=== PATIENT | female | born 1960 | race Caucasian/White ===

== ENCOUNTER → 2016-12-19 | Outpatient (CLI) | payer MEDICARE, OTHER ==
--- NOTE | 2016-12-20 11:51 | MM ---
Reason for exam: screening (asymptomatic). Last mammogram was performed 1 year and 1 month ago. History: Patient is postmenopausal and is nulliparous. Family history of breast cancer in aunt. Physical Findings: A clinical breast exam by your physician is recommended on an annual basis and results should be correlated with mammographic findings. MG Screening Mammo w CAD Bilateral CC and MLO view(s) were taken. Prior study comparison: November 23, 2015, bilateral MG screening mammo w CAD. June 25, 2014, bilateral MG screening mammo w CAD. The breast tissue is extremely dense which could obscure a lesion on mammography. There is no discrete abnormality. No significant changes when compared with prior studies. ASSESSMENT: Negative, BI-RAD 1 RECOMMENDATION: Routine screening mammogram of both breasts in 1 year.
== END | disposition home or self-care (01) ==
LOC: RADMAMWWP 12:57
PROVIDERS: ATTEND Obstetrics & Gynecology
DX: Z12.31 Encounter for screening mammogram for malignant neoplasm of breast (principal)

== ENCOUNTER → 2018-12-17 | Outpatient (CLI) | payer MEDICARE, OTHER ==
--- NOTE | 2018-12-18 09:06 | MM ---
Reason for exam: screening (asymptomatic). Last mammogram was performed 2 years ago. History: Patient is postmenopausal and is nulliparous. Family history of breast cancer in aunt. Physical Findings: A clinical breast exam by your physician is recommended on an annual basis and results should be correlated with mammographic findings. MG Screening Mammo w CAD Bilateral CC, MLO, and XCCL view(s) were taken. Prior study comparison: December 19, 2016, bilateral MG screening mammo w CAD. November 23, 2015, bilateral MG screening mammo w CAD. The breast tissue is heterogeneously dense. This may lower the sensitivity of mammography. Finding: There are diffuse/scattered calcifications in both breasts. No significant changes in finding since December 19, 2016 and November 23, 2015. ASSESSMENT: Benign, BI-RAD 2 RECOMMENDATION: Routine screening mammogram of both breasts in 1 year.
== END | disposition home or self-care (01) ==
LOC: RADMAMWWP 11:42
PROVIDERS: ATTEND General Practice
DX: Z12.31 Encounter for screening mammogram for malignant neoplasm of breast (principal)
CPT/HCPCS: 77067

== ENCOUNTER 2020-07-16 06:27 | Day surgery (SDC) | payer MEDICARE, OTHER ==
[2020-07-14 12:22] VITALS: BMI 21.7
[~2020-07-16 06:27] MED LIST: LACTATED RINGERS 1,000 ML IV SCH; LIDOCAINE 1% (10MG/ML) FOR IV START INTRADERMA PRN
--- NOTE | 2020-07-16 07:39 | P.GSHP ---
History of Present Illness H&P Date: 07/16/20 CHIEF COMPLAINT: Colon screen HISTORY OF PRESENT ILLNESS: The patient is a 60-year-old female who presents for colon screen. Lower endoscopy was offered for further evaluation and management. PAST MEDICAL HISTORY: Please see list. PAST SURGICAL HISTORY: Please see list. MEDICATIONS: Please see list. ALLERGIES: Please see list. SOCIAL HISTORY: No illicit drug use FAMILY HISTORY: No reports of Crohn disease or ulcerative colitis. REVIEW OF ORGAN SYSTEMS: CONSTITUTIONAL: No reports of fevers or chills. PHYSICAL EXAM: VITAL SIGNS: Stable GENERAL: Well-developed pleasant in no acute distress. HEENT: No scleral icterus. Extraocular movements grossly intact. Moist buccal mucosa. NECK: Supple without lymphadenopathy. CHEST: Unlabored respirations. Equal bilateral excursions. CARDIOVASCULAR: Regular rate and rhythm. Distal 2+ pulses. ABDOMEN: Soft, nontender, nondistended. MUSCULOSKELETAL: No clubbing, cyanosis, or edema. ASSESSMENT: 1. Colon screen. PLAN: 1. Recommend proceeding with a lower endoscopy Past Medical History Past Medical History: Cancer, GERD/Reflux, Hyperlipidemia Additional Past Medical History / Comment(s): low blood pressure, choking episode few yrs ago, constipation, basal cell cancer History of Any Multi-Drug Resistant Organisms: None Reported Past Surgical History: Orthopedic Surgery Additional Past Surgical History / Comment(s): surgery for fx rt leg with plates and pins- no other hx at assisted living home Past Anesthesia/Blood Transfusion Reactions: No Reported Reaction Smoking Status: Never smoker - Past Family History Brother(s) Family Medical History: Deep Vein Thrombosis (DVT) Medications and Allergies Home Medications Medication Instructions Recorded Confirmed Type Cholecalciferol [Vitamin D3] 2,000 unit PO DAILY 01/30/16 07/14/20 History Docusate [Colace] 100 mg PO 199901/30/16 07/14/20 History [place]be Carbonate [Nambe 450 mg PO BID 01/30/16 07/14/20 History Carbonate ER] Midodrine [ProAmatine] 5 mg PO 0800,1600 01/30/16 07/14/20 History carBAMazepine [TEGretol] 400 mg PO 0700 01/30/16 07/14/20 History risperiDONE [risperiDONE ODT] 4 mg PO BID 01/30/16 07/14/20 History Ascorbic Acid [Vitamin C] 1,000 mg PO QAM 07/14/20 07/14/20 History Atorvastatin [Lipitor] 20 mg PO 199907/14/20 07/14/20 History Benztropine Mesylate [Cogentin] 2 mg PO BID 07/14/20 07/14/20 History Deutetrabenazine [Austedo] 6 mg PO BID 07/14/20 07/14/20 History Deutetrabenazine [Austedo] 9 mg PO BID 07/14/20 07/14/20 History Lactulose 10 gm PO DIRECTED PRN 07/14/20 07/14/20 History Linaclotide [Linzess] 145 mcg PO 199907/14/20 07/14/20 History Multivit-Min/FA/Lycopen/Lutein 1 each PO QA 07/14/20 07/14/20 History [Centrum Silver Tablet] OLANZapine [ZyPREXA] 20 mg PO 199907/14/20 07/14/20 History OLANZapine [ZyPREXA] 20 mg PO 199907/14/20 07/14/20 History Omeprazole [PriLOSEC] 20 mg PO QA 07/14/20 07/14/20 History carBAMazepine [TEGretol] 600 mg PO 199907/14/20 07/14/20 History Allergies Allergy/AdvReac Type Severity Reaction Status Date / Time divalproex sodium Allergy Unknown Verified 07/16/20 07:12 [facility] Penicillins Allergy Unknown Verified 07/16/20 07:12 Surgical - Exam Vital Signs Temp Pulse Resp BP Pulse Ox 96.9 F L 68 14 108/60 99 07/16/20 07:14 07/16/20 07:14 07/16/20 07:14 07/16/20 07:14 07/16/20 07:14
[2020-07-16] MEDS ORDERED: PROPOFOL 10 MG/ML 20 ML VIAL IV ONE (07:59)
--- NOTE | 2020-07-16 08:25 | P.PCN ---
Date of Procedure: 07/16/20 Description of Procedure: PREOPERATIVE DIAGNOSIS: Colonoscopy screening, initial Cognitive delay POSTOPERATIVE DIAGNOSIS: Colonoscopy screening, initial Cognitive delay Poor prep with solid stool OPERATION: Colonoscopy to the hepatic flexure. SURGEON: Gifty Gordon MD. ANESTHESIA: MAC. INDICATIONS: The patient is a 60-year-old female who presents for her first colonoscopy screening. Benefits and risks were described and informed consent was obtained. DESCRIPTION OF PROCEDURE: The patient had undergone Gatorade, MiraLAX and Dulcolax prep. She had been brought into the operating room and laid in the left lateral decubitus position. After adequate intravenous sedation, the rectum was examined with 2% lidocaine jelly. No external hemorrhoids were encountered. The rectal tone was loose. No lesions were palpated in the rectal vault. An Olympus colonoscope was advanced along the rectum to a very tortuous sigmoid colon to the hepatic flexure. Extremely poor prep with opaque stool and semisolid stool was found in the sigmoid colon descending colon preventing any further advancement the scope in any visualization of the mucosa. Due to the extremely poor prep, procedure was terminated at the hepatic flexure. Procedure otherwise nondiagnostic. The colon was desufflated. The patient had tolerated the procedure well. Withdrawal time was over 6 minutes. FINDINGS: [place] preparation quality scale 5 (1-5) Tortuous sigmoid colon No external prolapsed hemorrhoids. Scope advanced to the hepatic flexure No arteriovenous malformations. Nondiagnostic procedure for polyps or colitis RECOMMENDATIONS: 1. Recommend tailored colonoscopy prep and bowel cleanse for at least 1 week prior to colonoscopy 2. Repeat colonoscopy in one year, 2020 Plan - Discharge Summary New Discharge Prescriptions: Continue Docusate [Colace] 100 mg PO 2000 Cholecalciferol [Vitamin D3 (25 Mcg = 1000 Iu)] 2,000 unit PO DAILY carBAMazepine [TEGretol] 400 mg PO 0700 [place] Carbonate [[place] Carbonate ER] 450 mg PO BID risperiDONE [risperiDONE ODT] 4 mg PO BID Midodrine [ProAmatine] 5 mg PO 0800,1600 Deutetrabenazine [Austedo] 6 mg PO BID Deutetrabenazine [Austedo] 9 mg PO BID Multivit-Min/FA/Lycopen/Lutein [Centrum Silver Tablet] 1 each PO QAM Omeprazole [PriLOSEC] 20 mg PO QAM Atorvastatin [Lipitor] 20 mg PO 1999 carBAMazepine [TEGretol] 600 mg PO 1999 Benztropine Mesylate [Cogentin] 2 mg PO BID Ascorbic Acid [Vitamin C] 1,000 mg PO QAM OLANZapine [ZyPREXA] 20 mg PO 1999 Linaclotide [Linzess] 145 mcg PO 1999 OLANZapine [ZyPREXA] 20 mg PO 1999 Lactulose 10 gm PO DIRECTED PRN PRN Reason: Constipation Discharge Medication List Cholecalciferol [Vitamin D3 (25 Mcg = 1000 Iu)] 2,000 unit PO DAILY 01/30/16 [History] Docusate [Colace] 100 mg PO 199901/30/16 [History] [place] Carbonate [[place] Carbonate ER] 450 mg PO BID 01/30/16 [History] Midodrine [ProAmatine] 5 mg PO 0800,1600 01/30/16 [History] carBAMazepine [TEGretol] 400 mg PO 0700 01/30/16 [History] risperiDONE [risperiDONE ODT] 4 mg PO BID 01/30/16 [History] Ascorbic Acid [Vitamin C] 1,000 mg PO QAM 07/14/20 [History] Atorvastatin [Lipitor] 20 mg PO 199907/14/20 [History] Benztropine Mesylate [Cogentin] 2 mg PO BID 07/14/20 [History] Deutetrabenazine [Austedo] 6 mg PO BID 07/14/20 [History] Deutetrabenazine [Austedo] 9 mg PO BID 07/14/20 [History] Lactulose 10 gm PO DIRECTED PRN 07/14/20 [History] Linaclotide [Linzess] 145 mcg PO 199907/14/20 [History] Multivit-Min/FA/Lycopen/Lutein [Centrum Silver Tablet] 1 each PO QAM 07/14/20 [History] OLANZapine [ZyPREXA] 20 mg PO 199907/14/20 [History] OLANZapine [ZyPREXA] 20 mg PO 199907/14/20 [History] Omeprazole [PriLOSEC] 20 mg PO QAM 07/14/20 [History] carBAMazepine [TEGretol] 600 mg PO 199907/14/20 [History] Follow up Appointment(s)/Referral(s): Gifty Gordon MD [STAFF PHYSICIAN] - 07/28/20 Patient Instructions/Handouts: Constipation (DC) Activity/Diet/Wound Care/Special Instructions: History of a colonoscopy one year due to extremely poor colon prep. Will need one week of extensive bowel cleansing including bowel prep for repeat in 2020 Discharge Disposition: HOME SELF-CARE
[2020-07-16 08:41] VITALS: TEMP 96.9
[2020-07-16 08:48] VITALS: BP 116/76; PULSE 71; RESP 16
== END 2020-07-16 09:04 | disposition home or self-care (01) ==
LOC: ORWHC2ENDO 06:27
PROVIDERS: ATTEND Surgery Plastic and Reconstructive Surgery
DX: Z12.11 Encounter for screening for malignant neoplasm of colon (principal); Q43.8 Other specified congenital malformations of intestine; R41.89 Other symptoms and signs involving cognitive functions and awareness; K21.9 Gastro-esophageal reflux disease without esophagitis; E78.5 Hyperlipidemia, unspecified; I95.9 Hypotension, unspecified; Z88.8 Allergy status to other drugs, medicaments and biological substances; Z88.0 Allergy status to penicillin; Z85.828 Personal history of other malignant neoplasm of skin; Z87.19 Personal history of other diseases of the digestive system; Z98.890 Other specified postprocedural states; Z87.81 Personal history of (healed) traumatic fracture; Z79.899 Other long term (current) drug therapy; Z97.2 Presence of dental prosthetic device (complete) (partial); Z82.49 Family history of ischemic heart disease and other diseases of the circulatory system
CPT/HCPCS: J2704; G0121; 45330

== ENCOUNTER 2021-09-09 06:41 | Day surgery (SDC) | payer MEDICARE, OTHER ==
[2021-09-06 12:51] VITALS: BMI 20.3
--- NOTE | 2021-09-09 07:35 | P.GSHP ---
History of Present Illness H&P Date: 09/09/21 CHIEF COMPLAINT: Colon screen HISTORY OF PRESENT ILLNESS: The patient is a 61-year-old female who presents for colon screen. Lower endoscopy was offered for further evaluation and management. PAST MEDICAL HISTORY: Please see list. PAST SURGICAL HISTORY: Please see list. MEDICATIONS: Please see list. ALLERGIES: Please see list. SOCIAL HISTORY: No illicit drug use FAMILY HISTORY: No reports of Crohn disease or ulcerative colitis. REVIEW OF ORGAN SYSTEMS: CONSTITUTIONAL: No reports of fevers or chills. PHYSICAL EXAM: VITAL SIGNS: Stable GENERAL: Well-developed pleasant in no acute distress. HEENT: No scleral icterus. Extraocular movements grossly intact. Moist buccal mucosa. NECK: Supple without lymphadenopathy. CHEST: Unlabored respirations. Equal bilateral excursions. CARDIOVASCULAR: Regular rate and rhythm. Distal 2+ pulses. ABDOMEN: Soft, nontender, nondistended. MUSCULOSKELETAL: No clubbing, cyanosis, or edema. ASSESSMENT: 1. Colon screen. PLAN: 1. Recommend proceeding with a lower endoscopy Past Medical History Past Medical History: Cancer, GERD/Reflux, Hyperlipidemia Additional Past Medical History / Comment(s): low blood pressure, choking episode few yrs ago, constipation, basal cell cancer, TARDIVE DYSKINESIA, MANIC DEPRESSIVE DISORDER OF DEPRESSIVE KIND, MENTAL CHALLENGES History of Any Multi-Drug Resistant Organisms: None Reported Past Surgical History: Orthopedic Surgery Additional Past Surgical History / Comment(s): surgery for fx rt leg with plates and pins, COLONOSCOPY, SKIN CANCER REMOVAL, no other hx at assisted living home Past Anesthesia/Blood Transfusion Reactions: No Reported Reaction Smoking Status: Never smoker - Past Family History Brother(s) Family Medical History: Deep Vein Thrombosis (DVT) Medications and Allergies Home Medications Medication Instructions Recorded Confirmed Type Cholecalciferol [Vitamin D3 (25 2,000 unit PO DAILY 01/30/16 09/09/21 History Mcg = 1000 Iu)] Docusate [Colace] 100 mg PO 199901/30/16 09/09/21 History [place] Carbonate [[place] 450 mg PO BID 01/30/16 09/09/21 History Carbonate ER] Midodrine [ProAmatine] 5 mg PO 0800,1600 01/30/16 09/09/21 History carBAMazepine [TEGretol] 400 mg PO 0700 01/30/16 09/09/21 History risperiDONE [risperiDONE ODT] 4 mg PO BID 01/30/16 09/09/21 History Ascorbic Acid [Vitamin C] 1,000 mg PO QAM 07/14/20 09/09/21 History Atorvastatin [Lipitor] 20 mg PO 199907/14/20 09/09/21 History Benztropine Mesylate [Cogentin] 2 mg PO BID 07/14/20 09/09/21 History Deutetrabenazine [Austedo] 6 mg PO BID 07/14/20 09/09/21 History Deutetrabenazine [Austedo] 9 mg PO BID 07/14/20 09/09/21 History Linaclotide [Linzess] 145 mcg PO 199907/14/20 09/09/21 History Multivit-Min/FA/Lycopen/Lutein 1 each PO QAM 07/14/20 09/09/21 History [Centrum Silver Tablet] OLANZapine [ZyPREXA] 20 mg PO 199907/14/20 09/09/21 History OLANZapine [ZyPREXA] 20 mg PO 199907/14/20 09/09/21 History Omeprazole [PriLOSEC] 20 mg PO QAM 07/14/20 09/09/21 History carBAMazepine [TEGretol] 600 mg PO 199907/14/20 09/09/21 History polyethylene glycoL 3350 [Miralax] 17 gm PO 09/06/21 09/09/21 History Allergies Allergy/AdvReac Type Severity Reaction Status Date / Time divalproex sodium Allergy Unknown Verified 09/09/21 07:19 [From Depakote] Penicillins Allergy Unknown Verified 09/09/21 07:19
[2021-09-09] MEDS ORDERED: ONDANSETRON 4 MG/2 ML VIAL ONE (07:37)
[2021-09-09 07:42] VITALS: TEMP 97.8
[2021-09-09] MEDS: LACTATED RINGERS 1,000 ML IV SCH ×2 (07:42→07:44)
[2021-09-09] MEDS ORDERED: PROPOFOL 10 MG/ML 20 ML VIAL IV ONE (07:44)
--- NOTE | 2021-09-09 08:28 | P.PCN ---
Date of Procedure: 09/09/21 Description of Procedure: PREOPERATIVE DIAGNOSIS: Colonoscopy screening. POSTOPERATIVE DIAGNOSIS: Colonoscopy screening. Poor prep with chronic constipation OPERATION: Colonoscopy to the ascending colon SURGEON: Gifty Gordon MD. ANESTHESIA: MAC. INDICATIONS: The patient is a 61-year-old female who presents for colonoscopy screening. Her last colonoscopy was less than 5 years ago. Benefits and risks were described and informed consent was obtained. DESCRIPTION OF PROCEDURE: The patient had undergone MiraLAX prep. She had been brought into the operating room and laid in the left lateral decubitus position. After adequate intravenous sedation, the rectum was examined with 2% lidocaine jelly. No external hemorrhoids were encountered. The rectal tone was loose. No lesions were palpated in the rectal vault. An Olympus colonoscope was advanced along the rectum to a very tortuous sigmoid colon. Poor prep was identified requiring lavage over 1 L normal saline. The scope was advanced to the hub into the rectum without visualization of the ileocecal valve due to moderate redundancy of the colon. No large evidence of polyps were identified. Despite multiple maneuvers and moderate length of the colon, the cecum/ileocecal valve was not visualized. The colon was desufflated. The patient had tolerated the procedure well. Withdrawal time was over 6 minutes. FINDINGS: Aronchik preparation quality scale 3+ (1-5) Tortuous and highly redundant colon with colonoscope terminate at mid ascending colon. No external prolapsed hemorrhoids. Externally poor prep requiring water jet lavage over 1 L normal saline. No arteriovenous malformations. No adenomatous polyps. No focal colitis. RECOMMENDATIONS: Completion of colonoscopy evaluation with barium enema for cecum and ileocecal valve Plan - Discharge Summary Discharge Rx Participant: No New Discharge Prescriptions: New Lactulose [Cephulac] 30 gm PO BID #240 ml Continue Docusate [Colace] 100 mg PO 2000 Cholecalciferol [Vitamin D3 (25 Mcg = 1000 Iu)] 2,000 unit PO DAILY carBAMazepine [TEGretol] 400 mg PO 0700 [place] Carbonate [[place] Carbonate ER] 450 mg PO BID risperiDONE [risperiDONE ODT] 4 mg PO BID Midodrine [ProAmatine] 5 mg PO 0800,1600 Deutetrabenazine [Austedo] 6 mg PO BID Deutetrabenazine [Austedo] 9 mg PO BID Multivit-Min/FA/Lycopen/Lutein [Centrum Silver Tablet] 1 each PO QAM Omeprazole [PriLOSEC] 20 mg PO QAM Atorvastatin [Lipitor] 20 mg PO 1999 carBAMazepine [TEGretol] 600 mg PO 1999 Benztropine Mesylate [Cogentin] 2 mg PO BID Ascorbic Acid [Vitamin C] 1,000 mg PO QAM OLANZapine [ZyPREXA] 20 mg PO 1999 Linaclotide [Linzess] 145 mcg PO 1999 OLANZapine [ZyPREXA] 20 mg PO 1999 polyethylene glycoL 3350 [Miralax] 17 gm PO HS Discharge Medication List Cholecalciferol [Vitamin D3 (25 Mcg = 1000 Iu)] 2,000 unit PO DAILY 01/30/16 [History] Docusate [Colace] 100 mg PO 199901/30/16 [History] [place] Carbonate [[place] Carbonate ER] 450 mg PO BID 01/30/16 [History] Midodrine [ProAmatine] 5 mg PO 0800,1600 01/30/16 [History] carBAMazepine [TEGretol] 400 mg PO 0700 01/30/16 [History] risperiDONE [risperiDONE ODT] 4 mg PO BID 01/30/16 [History] Ascorbic Acid [Vitamin C] 1,000 mg PO QAM 07/14/20 [History] Atorvastatin [Lipitor] 20 mg PO 199907/14/20 [History] Benztropine Mesylate [Cogentin] 2 mg PO BID 07/14/20 [History] Deutetrabenazine [Austedo] 6 mg PO BID 07/14/20 [History] Deutetrabenazine [Austedo] 9 mg PO BID 07/14/20 [History] Linaclotide [Linzess] 145 mcg PO 199907/14/20 [History] Multivit-Min/FA/Lycopen/Lutein [Centrum Silver Tablet] 1 each PO QAM 07/14/20 [History] OLANZapine [ZyPREXA] 20 mg PO 199907/14/20 [History] OLANZapine [ZyPREXA] 20 mg PO 199907/14/20 [History] Omeprazole [PriLOSEC] 20 mg PO QAM 07/14/20 [History] carBAMazepine [TEGretol] 600 mg PO 199907/14/20 [History] polyethylene glycoL 3350 [Miralax] 17 gm PO HS 09/06/21 [History] Lactulose [Cephulac] 30 gm PO BID #240 ml 09/09/21 [Rx] Follow up Appointment(s)/Referral(s): Gifty Gordon MD [STAFF PHYSICIAN] - 10/05/21 Ambulatory/Diagnostic Orders: Miscellaneous Radiology Order [RAD.AMB] Location: None Selected Patient Instructions/Handouts: *Surgery [facility] - (Anesthesia) Endoscopy Discharge Instructions, Colonoscopy (DC), Constipation (ED) Activity/Diet/Wound Care/Special Instructions: Repeat colonoscopy in 1 year, 2021 Discharge Disposition: HOME SELF-CARE
[2021-09-09 10:53] VITALS: BP 105/58; PULSE 74; RESP 14
--- NOTE | 2021-09-09 19:26 | XR ---
EXAMINATION TYPE: XR abdomen 1V DATE OF EXAM: 09/09/2021 Comparison: None Clinical History: 61-year-old female failed colonoscopy Findings: The preliminary film for intended colonoscopy. However, there is marked residual gaseous distention t hroughout the entire colon. The patient will need to be rescheduled for barium enema. Impression: Persistent marked gaseous distention throughout the colon. The patient will need to be rescheduled fo r barium enema (status post failed colonoscopy).
== END 2021-09-09 11:26 | disposition home or self-care (01) ==
LOC: ORWHC2ENDO 06:41
PROVIDERS: ATTEND Surgery Plastic and Reconstructive Surgery
DX: Z12.11 Encounter for screening for malignant neoplasm of colon (principal); K59.09 Other constipation; Q43.8 Other specified congenital malformations of intestine; K21.9 Gastro-esophageal reflux disease without esophagitis; E78.5 Hyperlipidemia, unspecified; Z85.828 Personal history of other malignant neoplasm of skin; G24.01 Drug induced subacute dyskinesia; F31.9 Bipolar disorder, unspecified; I95.9 Hypotension, unspecified; Z98.890 Other specified postprocedural states; Z82.49 Family history of ischemic heart disease and other diseases of the circulatory system; Z79.899 Other long term (current) drug therapy; Z88.0 Allergy status to penicillin; Z88.8 Allergy status to other drugs, medicaments and biological substances
CPT/HCPCS: 74018; J2405; J2704; G0121

== ENCOUNTER → 2022-02-17 | Outpatient (CLI) | payer MEDICARE, OTHER ==
--- NOTE | 2022-02-18 13:47 | MM ---
Reason for Exam: Screening (asymptomatic). Last mammogram was performed 3 year(s) and 2 month(s) ago. Patient History: Menarche at age 14. Patient has no children. Postmenopausal. Maternal aunt had breast cancer. Risk Values: Anna 5 year model risk: 1.5%. NCI Lifetime model risk: 7.0%. Prior Study Comparison: 11/23/2015 Bilateral Screening Mammogram, [facility]. 12/19/2016 Bilateral Screening Mammogram, [facility]. 12/17/2018 Bilateral Screening Mammogram, [facility]. Tissue Density: The breast tissue is extremely dense which could obscure a lesion on mammography. Findings: Analyzed By CAD. There is a focal asymmetric density within the medial left cranial caudal projection which is new from comparison study. Additional workup is recommended. There are scattered regional calcifications within the right breast present previously. Overall Assessment: Incomplete: need additional imaging evaluation, BI-RAD 0 Management: Diagnostic Mammogram of the left breast. A negative mammogram report should not preclude additional follow up of suspicious palpable abnormalities. Patient should continue monthly self breast exam. A clinical breast exam by your physician is recommended on an annual basis and results should be correlated with mammographic findings. Electronically signed and approved by: Manoj Gallardo D.O. Radiologis
== END | disposition home or self-care (01) ==
LOC: RADMAMWWP 13:11
PROVIDERS: ATTEND General Practice
DX: Z12.31 Encounter for screening mammogram for malignant neoplasm of breast (principal); Z78.0 Asymptomatic menopausal state; Z80.3 Family history of malignant neoplasm of breast
CPT/HCPCS: 77067

== ENCOUNTER → 2022-02-17 | Outpatient (CLI) | payer MEDICARE, OTHER | END | disposition home or self-care (01) | LOC: LABWHC1 13:43 | PROVIDERS: ATTEND General Practice | DX: F31.9 Bipolar disorder, unspecified (principal) | CPT/HCPCS: 36415; 80178 ==

== ENCOUNTER → 2022-03-02 | Outpatient (CLI) | payer MEDICARE, OTHER ==
--- NOTE | 2022-03-02 11:23 | MM ---
Reason for Exam: Additional evaluation requested from abnormal screening. Last screening mammogram was performed less than 1 month ago. Patient History: Menarche at age 14. Patient has no children. Postmenopausal. Maternal aunt had breast cancer. Risk Values: Anna 5 year model risk: 1.5%. NCI Lifetime model risk: 7.0%. Prior Study Comparison: 12/19/2016 Bilateral Screening Mammogram, [facility]. 12/17/2018 Bilateral Screening Mammogram, [facility]. 02/17/2022 Bilateral MG screening mammo w CAD, [facility]. Tissue Density: Left: The breast tissue is heterogeneously dense. This may lower the sensitivity of mammography. Findings: Analyzed By CAD. Mammogram Persistent asymmetric nodular density inner lower left breast 6.4 cm from the nipple and measures 7 mm in size. Ultrasound is advised.. Technique: Method: Targeted. Findings: The lower inner quadrant of the left breast was scanned. Finding 1: Mass. Laterality: Left. Non-Palpable Abnormality visualized. Size 5 x 4 x 6 mm. 8 O'clock Quadrant: Lower inner. 8 cm cm from nipple. Shape: Oval. Margin: Microlobulated. Overall Assessment: Suspicious, BI-RAD 4 Assessment: MG 3D work up w/cad LT - Left: Incomplete: need additional imaging evaluation, BI-RAD 0. US breast workup limited LT - Left: Suspicious, BI-RAD 4. Management: Ultrasound Core Biopsy of the left breast. A clinical breast exam by your physician is recommended on an annual basis and results should be correlated with mammographic findings. Results were given to the patient verbally at the time of exam. Electronically signed and approved by: Juma Dasilva M.D. Radiologis
== END ==
LOC: RADMAMWWP 10:32
PROVIDERS: ATTEND General Practice
DX: R92.8 Other abnormal and inconclusive findings on diagnostic imaging of breast (principal); Z78.0 Asymptomatic menopausal state; Z80.3 Family history of malignant neoplasm of breast
CPT/HCPCS: 77065; 76642; G0279; 77061

== ENCOUNTER → 2022-03-07 | Day surgery (SDC) | payer MEDICARE, OTHER ==
--- NOTE | 2022-03-16 10:17 | USB ---
Reason for Exam: Post Procedure Mammogram. Last screening mammogram was performed less than 1 month ago. Patient History: Menarche at age 14. Patient has no children. Postmenopausal. Maternal aunt had breast cancer. Risk Values: Anna 5 year model risk: 1.5%. NCI Lifetime model risk: 7.0%. Prior Study Comparison: 12/17/2018 Bilateral Screening Mammogram, [facility]. 02/17/2022 Bilateral MG screening mammo w CAD, [facility]. 03/02/2022 Left MG 3D work up w/cad LT, [facility]. Tissue Density: Left: The breast tissue is extremely dense which could obscure a lesion on mammography. Pathology Description: Location: lower inner quadrant. Marker Left Behind. Needle Type: Mammotone Cores: 2 Skin Nicks: 1 Gauge: 13 The procedure of ultrasound guided core biopsy was explained to the patient and her attending caregiver. Benefits, alternatives, and risks were discussed. An informed consent was then obtained. A timeout was performed. The patient was placed in supine positioning for imaging and for the procedure. The overlying skin was prepped and draped in usual sterile fashion. Lidocaine was used as anesthetic into the skin and subcutaneous tissue up to area of concern in the left breast. A small skin tamia was made with surgical scalpel. Under ultrasound guidance, a 12-gauge vacuum assisted biopsy gun device was used to obtain 2 core samples. There was a vessel superior to the lesion and additional biopsies risk vessel laceration. Significant bleeding was not observed. A biopsy clip was left in lesion. Hydromark core marker was placed. The patient tolerated the procedure well without any immediate complication. The patient was kept in the radiology department for short stay after the procedure and then discharged home in stable condition. Postprocedure mammogram was performed. Hydromark is in the expected region of the biopsy. Impression: Successful ultrasound guided core biopsy of area of concern in the breast, full pathology results to follow. Recommendations: 1. Recommendations are pending pathology results. Pathology Results: Result: Malignant, Invasive ductal carcinoma. LEFT BREAST, 8:00, ULTRASOUND GUIDED CORE BIOPSY: Invasive well differentiated ductal carcinoma (Grade 1). See Surgical Pathology Cancer Case Summary and Comment. Overall Assessment: Malignant Assessment: MG diagnostic mammo LT wo CAD. - Left: Known biopsy proven malignancy, BI-RAD 6. Management: Surgical Consultation of the left breast. Electronically signed and approved by: Manoj Gallardo D.O. Radiologis
== END ==
LOC: RADUSWWP 12:22
PROVIDERS: ATTEND General Practice
DX: R92.8 Other abnormal and inconclusive findings on diagnostic imaging of breast (principal); N63.24 Unspecified lump in the left breast, lower inner quadrant; F79 Unspecified intellectual disabilities
CPT/HCPCS: 88305; 88342; 88341; 77065; 19083; A4648

== ENCOUNTER → 2022-03-25 | Outpatient (CLI) | payer MEDICARE, OTHER ==
[2022-03-25 10:25] VITALS: BP 109/67; PULSE 64; RESP 16; TEMP 98.1
--- NOTE | 2022-03-25 10:53 | P.GSHP ---
History of Present Illness H&P Date: 03/25/22 Chief Complaint: invasive ductal cancer left breast Allyssa is a 61 year old mentally challanged white female with a biopsy proven invasive ductal cancer in her left bresat at 8:00. She is seen in consultation for DR. Frausto in conjunction with her medical group president Nae Tejada. She lives in [facility]. She has been there for 10 years. She does not feel any lumps masses or nodules of concern in either breast. She had a routine screening mammogram performed 6921. No lesions of concern were noted in the right breast. In the left breast an area of concern was identified for which additional studies were performed and the lesion at the 8 o'clock position was recommended for core biopsy. Ultrasound-guided core biopsy was performed and [id number]. This revealed a well-differentiated ductal carcinoma. This is grade 1 ER/CO positive HER-2/phillip negative. The lesion is approximately 6 mm in size. She has a legal guardian, Victor M Sprague. She has not had any further breast biopsies. She had had a basal cell cancer removed form her forehead. Caffiene: 2 cups/day nicotine: none chocolate: occasional hormones: none Family history: patient basal cell cancer neice: ? type unknown Hormonal History: menarche: 14 G0 menopause: 49 BCP: none hormones: none Surgical History: skin basal cell cancer garfield in her left leg Medical History: high cholesterol low blood pressure: midodrine tardive dyskinese chronic constipation bipolar Social History: Nicotine: Negative Alcohol: Negative Drugs: Negative - Constitutional Constitutional: Denies chills, Denies fever - EENT Eyes: denies blurred vision, denies pain Ears: deny: decreased hearing, tinnitus Ears, nose, mouth and throat: Denies headache, Denies sore throat - Breasts Breasts: bilateral: as per HPI - Cardiovascular Cardiovascular: Denies chest pain, Denies shortness of breath - Respiratory Respiratory: Denies cough, Denies 7 - Gastrointestinal Gastrointestinal: Reports constipation - Genitourinary (Female) Genitourinary: Denies dysuria, Denies hematuria - Menstruation Menstruation: Reports postmenopausal - Musculoskeletal Comment: left leg surgery - Integumentary Integumentary: Denies pruritus, Denies rash - Neurological Neurological: Denies numbness, Denies weakness - Psychiatric Comment: Bipolar - Endocrine Endocrine: Denies fatigue, Denies weight change - Hematologic/Lymphatic Comment: none - Allergic/Immunologic Allergic/Immunologic: Reports as per HPI Past Medical History Past Medical History: Cancer, GERD/Reflux, Hyperlipidemia Additional Past Medical History / Comment(s): low blood pressure, choking episode few yrs ago, constipation, basal cell cancer, TARDIVE DYSKINESIA, MANIC DEPRESSIVE DISORDER OF DEPRESSIVE KIND, MENTAL CHALLENGES History of Any Multi-Drug Resistant Organisms: None Reported Past Surgical History: Orthopedic Surgery Additional Past Surgical History / Comment(s): surgery for fx rt leg with plates and pins, COLONOSCOPY, SKIN CANCER REMOVAL, no other hx at assisted living home Past Anesthesia/Blood Transfusion Reactions: No Reported Reaction Past Psychological History: Anxiety, Bipolar, Depression Additional Psychological History / Comment(s): DEPRESSIVE TYPE Smoking Status: Never smoker Past Alcohol Use History: None Reported Past Drug Use History: None Reported - Past Family History Brother(s) Family Medical History: Deep Vein Thrombosis (DVT) Medications and Allergies Home Medications Medication Instructions Recorded Confirmed Type Cholecalciferol [Vitamin D3 (25 2,000 unit PO DAILY 01/30/16 03/25/22 History Mcg = 1000 Iu)] Docusate [Colace] 100 mg PO 199901/30/16 03/25/22 History Sandy Carbonate [Sandy 450 mg PO BID 01/30/16 03/25/22 History Carbonate ER] Midodrine [ProAmatine] 5 mg PO 0800,1600 01/30/16 03/25/22 History risperiDONE [risperiDONE ODT] 3 mg PO BID 01/30/16 03/25/22 History Ascorbic Acid [Vitamin C] 1,000 mg PO QAM 07/14/20 03/25/22 History Atorvastatin [Lipitor] 20 mg PO 199907/14/20 03/25/22 History Benztropine Mesylate [Cogentin] 2 mg PO BID 07/14/20 03/25/22 History Deutetrabenazine [Austedo] 6 mg PO BID 07/14/20 03/25/22 History Deutetrabenazine [Austedo] 9 mg PO BID 07/14/20 03/25/22 History Linaclotide [Linzess] 145 mcg PO 199907/14/20 03/25/22 History Multivit-Min/FA/Lycopen/Lutein 1 each PO QAM 07/14/20 03/25/22 History [Centrum Silver Tablet] Omeprazole [PriLOSEC] 20 mg PO QAM 07/14/20 03/25/22 History polyethylene glycoL 3350 [Miralax] 17 gm PO HS 09/06/21 03/25/22 History Lactulose [Cephulac] 30 gm PO BID #240 ml 09/09/21 03/25/22 Rx Melatonin 0 mg PO HS 03/04/22 03/25/22 History Allergies Allergy/AdvReac Type Severity Reaction Status Date / Time divalproex sodium Allergy Unknown Verified 03/25/22 10:18 [From Depakote] Penicillins Allergy Unknown Verified 03/25/22 10:18 valproic acid Allergy Unknown Verified 03/25/22 10:18 Surgical - Exam Vital Signs Temp Pulse Resp BP Pulse Ox 98.1 F 64 16 109/67 100 03/25/22 10:22 03/25/22 10:22 03/25/22 10:22 03/25/22 10:22 03/25/22 10:22 BMI: 20 - General no distress - Eyes normal ocular movement - Neck trachea midline - Respiratory normal respiratory effort - Cardiovascular Rhythm: regular Heart Sounds: normal: S1, S2 - Integumentary normal turgor - Neurologic no disoriented, no combative - Musculoskeletal normal gait - Psychiatric oriented to time, oriented to person, oriented to place, speech is normal, memory intact Breast Exam: BRA: 36B inspection: Bilateral grade 1/2 ptosis Palpation: Right breast: Multiple positional exam breasts are dense but no discrete dominant masses or nodules of concern fibrocystic changes Right axilla: No adenopathy of concern Left breast: Breasts are dense mild ecchymosis from recent biopsy no dominant masses or nodules of concern, fibrocystic changes Left axilla: No adenopathy of concern Results Mammogram and ultrasound reviewed in detail with Dr. Rhodes from radiology Assessment and Plan Assessment: Impression: Biopsy-proven left breast invasive ductal carcinoma grade 1 year. Positive HER- 2 negative, stage IA Fibrocystic breast tissue dense bilateral Bipolar Plan: 1. presentation of case at tumor board #2 most likely needle localization lumpectomy, possible optical plastic tissue transfer, sentinel node injection, sentinel node biopsy, possible axillary node dissection The patient's treatment options will be discussed in detail with the patient and her caregiver Nae Tejada CC: Dr. Frausto
== END ==
LOC: WWCWWP 09:49
PROVIDERS: ATTEND Surgery
DX: N60.11 Diffuse cystic mastopathy of right breast (principal); C50.912 Malignant neoplasm of unspecified site of left female breast; F31.9 Bipolar disorder, unspecified; F41.9 Anxiety disorder, unspecified; E78.5 Hyperlipidemia, unspecified; K21.9 Gastro-esophageal reflux disease without esophagitis; Z79.899 Other long term (current) drug therapy; Z88.0 Allergy status to penicillin; Z88.8 Allergy status to other drugs, medicaments and biological substances

== ENCOUNTER → 2022-05-17 | Day surgery (SDC) | payer MEDICARE, OTHER ==
[2022-05-13 10:03] VITALS: BMI 18.8
[~2022-05-17] MED LIST changes: +ALPRAZolam 0.25 MG TAB ONE; +ALPRAZolam 0.25 MG TAB PO ONE; +DEXAMETHASONE SOD PHOSPHATE 4 MG/ML 1 ML VIAL IV ONE; +HEPARIN SODIUM,PORCINE/PF 5,000 UNIT/0.5 ML SYRINGE SQ PRN; +HYDROmorphone 0.5 MG/0.5 ML SYRINGE IVP PRN; +LACTATED RINGERS 1,000 ML BAG IV ONE; +LIDOCAINE 1% INJ 10MG/ML (20 ML MDV) SQ ONE; +LIDOCAINE 2% INJ 20 MG/ML (2 ML VIAL) ONE; +MIDAZOLAM 2 MG/2 ML VIAL ONE; +ONDANSETRON 4 MG/2 ML VIAL IVP ONE; +PROPOFOL 10 MG/ML 20 ML VIAL IV ONE; +Pre Op ABX Message 1 EACH MISC MISCELLANE ONE; +SODIUM CHLORIDE 0.9% 1,000 ML BAG ONE; +SUCCINYLCHOLINE CHLORIDE 200 MG/10 ML VIAL IV ONE; +ePHEDrine 50 MG/ML 1 ML VIAL ONE; +fentaNYL (PF) 50 MCG/ML 2 ML AMP ONE
[2022-05-17 11:19] VITALS: RESP 16
[2022-05-17 11:46] VITALS: BP 99/60; PULSE 77; TEMP 98.3
--- NOTE | 2022-05-17 12:03 | NM ---
EXAMINATION TYPE: NM sentinel node injection DATE OF EXAM: 05/17/2022 COMPARISON: NONE HISTORY: Left-sided breast cancer TECHNIQUE AND FINDINGS: The procedure of sentinel lymph node injection was explained to the patient. The benefits, alternatives, and risks were discussed. An informed consent was then obtained. Overlying skin is cleaned with sterile alcohol. Following this, 533 uCi Tc99m Tilmanocept was inject ed in the upper outer aspect of the left nipple intradermally. The patient tolerated the procedure well without any immediate complication. The patient was kept in the radiology department for short stay after the procedure and then taken to surgery for surgical p rocedure what is presumed intraoperative gamma probe will be used for sentinel lymph node detection. IMPRESSION: Left breast radiotracer injection for sentinel node localization as above.
[2022-05-17 19:14] LABS: Glucose,Whole Blood 101 mg/dL (70-110)
--- NOTE | 2022-05-19 12:51 | P.OP ---
Date of Procedure: 05/17/22 Preoperative Diagnosis: Left breast invasive ductal carcinoma stage IA Postoperative Diagnosis: Same Procedure(s) Performed: Left breast needle localization lumpectomy, sentinel node biopsy Anesthesia: ANNABELA Surgeon: Noreen Polanco Pathology: other (Left breast tissue, left sentinel node) Condition: stable Disposition: same day Indications for Procedure: Biopsy-proven left breast invasive ductal carcinoma Operative Findings: Fibrofatty breast tissue Description of Procedure: The patient is a 62-year-old white female who had a biopsy-proven left breast invasive ductal carcinoma on core biopsy. She opted for a lumpectomy and sentinel node biopsy. Preoperatively the localization of the area of concern was performed. An radiotracer was injected in the periareolar area. Following this she was brought to the operative suite. Following induction of anesthesia the left breast and axilla were prepped and draped in a sterile fashion. Using the neoprobe the area of greatest radioactivity in the axilla was identified. An incision was made and carried down to the radioactive lymph node. The tissue was excised. 3 sentinel lymph nodes were identified. Pinson node #1 had a 10 second count of 1849, #2 had a 10 second count of 2044, and #3 had a 10 second count of 353. The background count was 44. These lymph nodes were all removed and sent to pathology. After assured that hemostasis was attained the deep tissues were closed using 3-0 Vicryl suture. The skin was closed using 4-0 Monocryl. The area of the breast was then approached. An incision was made and carried down to the hook of the needle. Surrounding tissue was excised. The specimen was painted for orientation. Titanium clips were placed. Posteriorly dissection was onto the pectoralis muscle. After assured that hemostasis was attained the deep tissues were closed using 3-0 Vicryl suture. This was followed by closure of the skin with 3-0 subcutaneous suture and a 4-0 Monocryl suture. The patient tolerated the procedure in stable condition. All instru ment and sponge counts were correct at the end of the case.
--- NOTE | 2022-05-19 12:52 | P.NAPBC ---
NAPBC Queries - NAPBC Queries Was patient's case review presented at [facility] tumor board? If no, comment.: Yes Was patient's pathology reviewed at [facility]? If no, comment.: Yes Was breast conservation surgery offered? If no, comment.: Yes Was sentinel node biopsy offered? If no, comment.: Yes Was diagnosis confirmed by percutaneous core biopsy? If no, comment.: Yes Is patient mastectomy patient?: No Was a preop referral to reconstructive surgeon offered?: No Clinical Stage: Stage IA invasive ductal left breast cancer
--- NOTE | 2022-05-24 09:36 | MM ---
Reason for Exam: Post Procedure Mammogram. Last screening mammogram was performed 3 month(s) ago. Patient History: Menarche at age 14. Patient has no children. Postmenopausal. Breast cancer, left, age 61. 03/07/2022, Malignant US biopsy breast VAD LT on the left side. Maternal aunt had breast cancer. Prior Study Comparison: 02/17/2022 Bilateral MG screening mammo w CAD, [facility]. 03/02/2022 Left MG 3D work up w/cad LT, [facility]. 03/07/2022 Left MG diagnostic mammo LT wo CAD., [facility]. Tissue Density: Left: The breast tissue is extremely dense which could obscure a lesion on mammography. Pathology Description: Location: 8 o'clock, lower inner quadrant. Needle Type: 5 cm Kopan The procedure of needle localization with wire placement and than surgical excision was explained to the patient. Benefits, alternatives, and risks were discussed. An informed consent was then obtained. Ultrasound localization performed due to patient being sampled under ultrasound. Preprocedure ultrasound redemonstrates 7 mm vague hypoechoic lesion at 8:00 position 8 cm distance from nipple corresponding to biopsy-proven malignancy. The overlying skin was prepped and draped in usual sterile fashion. Lidocaine is used as anesthetic into the skin and subcutaneous tissue up to the level of area of concern. A 5 cm needle was used. It was placed ultrasound guidance approach under mammographic guidance. Needle was withdrawn and wire is fixed. The wire was fixed to patient's skin. Post procedure mammogram performed for surgeon documenting successful placement of wire terminating adjacent to biopsy clip. Images were marked for surgeon. The patient tolerated the procedure well without any immediate complication. The patient was kept in the radiology department for short stay after the procedure and then taken to surgery for surgical excision. Targeted biopsy clip and wire are identified in specimen mammogram. The patient was kept in hospital for short stay after the procedure and then discharged home in stable condition. IMPRESSION: Successful, uncomplicated needle localization with wire placement and surgical excision of targeted biopsy clip and adjacent mass in the left breast, full pathology results to follow. Pathology Results: Result: Malignant, Invasive ductal carcinoma. A. SENTINEL LYMPH NODE #1 LEFT BREAST: Lymph node negative for metastasis. CK7 and LIBERTAD immunoperoxidase stains performed on block A1 are confirmatory (controls appropriate). B. SENTINEL LYMPH NODE #2 LEFT BREAST: Three lymph nodes negative for metastasis. CK7 and LIBERTAD immunoperoxidase stains performed on blocks B1 and B2 are confirmatory (controls appropriate). C. SENTINEL LYMPH NODE #3 LEFT BREAST: Three lymph nodes negative for metastasis. CK7 and LIBERTAD immunoperoxidase stains performed on blocks C1 and C2 are confirmatory (controls appropriate). D. LEFT BREAST, LUMPECTOMY: Invasive well differentiated ductal carcinoma (grade 1), margins negative. See Surgical Pathology Cancer Case Summary. Overall Assessment: Malignant Assessment: MG diagnostic mammo LT wo CAD. - Left: Known biopsy proven malignancy, BI-RAD 6. Management: Surgical Consultation of the left breast. Diagnostic Mammogram of the left breast in 6 months. Diagnostic Breast Ultrasound of the left breast in 6 months. Electronically signed and approved by: Mahesh Kelley M.D.
== END ==
LOC: OR 09:46
PROVIDERS: ATTEND Surgery
DX: C50.312 Malignant neoplasm of lower-inner quadrant of left female breast (principal); N60.12 Diffuse cystic mastopathy of left breast; Z17.0 Estrogen receptor positive status [ER+]; Z80.8 Family history of malignant neoplasm of other organs or systems; E78.00 Pure hypercholesterolemia, unspecified; F31.9 Bipolar disorder, unspecified; E78.5 Hyperlipidemia, unspecified; K21.9 Gastro-esophageal reflux disease without esophagitis; Z88.0 Allergy status to penicillin; Z88.8 Allergy status to other drugs, medicaments and biological substances; R03.1 Nonspecific low blood-pressure reading; K59.09 Other constipation; Z79.899 Other long term (current) drug therapy; Z82.49 Family history of ischemic heart disease and other diseases of the circulatory system
CPT/HCPCS: 88342; 88307; 88341; 77065; 76098; 19285; 38792; 19301; 38525; 38900; C1819; A9520; J2250; J0330; J1100; J2405; J2001 ×2; J3010; J2704; J1644

== ENCOUNTER → 2022-05-26 | Outpatient (CLI) | payer MEDICARE, OTHER ==
[2022-05-26 11:15] VITALS: BP 99/60; PULSE 68; RESP 18; TEMP 98.3
--- NOTE | 2022-05-26 11:21 | P.PN ---
Progress Note - Text Progress Note Date: 05/26/22 left breast [id number]+Her2(-)Ana Maria Spivey is a 62 year old whtie female status post a left breast lumpectomy and SNB on 05-17-22. Her margins were negative and 7 nodes (-). She did well with no complications related to the surgery. She lives in a retirement and is seen postoperatively with her staff workforce investment act career manager. Examination: Lungs: Clear Heart: Regular rate and rhythm Incisions breast and axilla clean and dry Impression: Patient doing well status post lumpectomy and sentinel node biopsy left breast stage IA breast invasive ductal carcinoma size of tumor was only 4 mm Plan: Appointment medical oncology Appointment radiation oncology Follow-up. In 4 months Cc: Dr. Seth Braswell Jett
== END ==
LOC: WWCWWP 10:34
PROVIDERS: ATTEND Surgery
DX: C50.912 Malignant neoplasm of unspecified site of left female breast (principal); Z98.890 Other specified postprocedural states; Z88.0 Allergy status to penicillin; Z88.8 Allergy status to other drugs, medicaments and biological substances

== ENCOUNTER → 2022-07-21 | Outpatient (CLI) | payer MEDICARE, OTHER ==
--- NOTE | 2022-07-21 13:10 | BD ---
EXAMINATION TYPE: Axial Bone Density DATE OF EXAM: 07/21/2022 COMPARISON: NONE CLINICAL HISTORY: 62 year old Female. ICD-10 CODE: C50.312 BR CANCER Height: 63 Weight: 116.3 FRAX RISK QUESTIONS: Alcohol (3 or more units per day): no Family History (Parent hip fracture): unsure Glucocorticoids (More than 3mos): no (Ex: prednisone, prednisolone, methylprednisolone, dexamethasone, and hydrocortisone). History of Fracture in Adulthood: yes Secondary Osteoporosis: 1. Type 1 Diabetes: no 2. Hyperthyroidism: no 3. Menopause before 45: no 4. Malnutrition: no 5. Chronic liver disease: no Rheumatoid Arthritis: no Current Tobacco Use: no RISK FACTORS HISTORY OF: Surgery to Spine/Hip(right/left)/Wrist (right/left): no Family History of Osteoporosis: no Active: no Diet low in dairy products/other sources of calcium: yes Postmenopausal woman: yes Lost more than 2 inches in height since high school: yes MEDICATIONS: Additional History: breast cancer EXAM MEASUREMENTS: Bone mineral densitometry was performed using the [employer] System. Bone mineral density as measured about the Lumbar spine is: ----- L1-L4(G/cm2): 0.981 T Score Values are as follows: ----- L1: -2.0 ----- L2: -1.9 ----- L3: -1.2 ----- L4: -1.7 ----- L1-L4: -1.7 Bone mineral density : baseline Bone mineral density about the R hip (g/cm2): 0.915 Bone mineral density about the L hip (g/cm2): 0.680 T Score values are as follows: -----R Neck: -0.9 -----L Neck: -2.6 -----R Total: -0.4 -----L Total: -2.4 Bone mineral density : baseline FRAX%s: The graph provided illustrates a 19.5% chance for a major osteoporotic fx and a 4.5% chance f or the hips probability for fx in 10 years time. IMPRESSION: Osteoporosis (T Score less than -2.5). There is increased fracture risk and therapy is usually indicated based on age. Re-Screen 1-2 years. NOTE: T-SCORE=SD OF THE YOUNG ADULT MEAN.
== END | disposition home or self-care (01) ==
LOC: RADBDWWP 12:28
PROVIDERS: ATTEND Internal Medicine
DX: C50.312 Malignant neoplasm of lower-inner quadrant of left female breast (principal); M81.0 Age-related osteoporosis without current pathological fracture; Z78.0 Asymptomatic menopausal state
CPT/HCPCS: 77080

== ENCOUNTER → 2022-09-30 | Outpatient (CLI) | payer MEDICARE, OTHER ==
[2022-09-30 12:03] VITALS: BP 93/64; PULSE 64; RESP 17; TEMP 97.9
--- NOTE | 2022-09-30 12:28 | P.PN ---
Subjective Progress Note Date: 09/30/22 left breast invasive ductal cancer; [id number]+WA+Her2-G1 Allyssa is a 61 year old mentally challanged white female with a biopsy proven invasive ductal cancer in her left bresat at 8:00. She was seen in consultation for DR. Frausto in conjunction with her medical assembler wire group Nae Tejada. She lives in [place]. She has been there for 10 years. She does not feel any lumps masses or nodules of concern in either breast. She had a routine screening mammogram performed on 6921. No lesions of concern were noted in the right breast. In the left breast an area of concern was identified for which additional studies were performed and the lesion at the 8 o'clock position was recommended for core biopsy. Ultrasound-guided core biopsy was performed and 72767. This revealed a well-differentiated ductal carcinoma. This is grade 1 ER/WA positive HER-2/phillip negative. The lesion is approximately 6 mm in size. Her case was presented at tumor board and [id number]. The consensus was for a left breast lumpectomy with sentinel node biopsy, to be followed by radiation therapy, to be followed by hormonal therapy. She has a legal guardian, Victor M Sprague. She has not had any further breast biopsies. She had had a basal cell cancer removed from her forehead. She underwent a left breast lumpectomy and SNB on 05-17-22. The lesion was 4 mm and 7 nodes were removed all (-). She has had a course of radiation treatment completed in August 2022. She did not have an AI secondary to osterporesis, but was started on tamoxifen. She is not complaining of any problems. She is due for a mammogram in February 2023. She was seen with Nae Tejada who is her assembler wire group. Caffiene: 2 cups/day nicotine: none chocolate: occasional hormones: none Family history: patient basal cell cancer neice: ? type unknown Hormonal History: menarche: 14 G0 menopause: 49 BCP: none hormones: none Surgical History: skin basal cell cancer garfield in her left leg Medical History: high cholesterol low blood pressure: midodrine tardive dyskinese chronic constipation bipolar Social History: Nicotine: Negative Alcohol: Negative Drugs: Negative - Constitutional Constitutional: Denies chills, Denies fever - EENT Eyes: denies blurred vision, denies pain Ears: deny: decreased hearing, tinnitus Ears, nose, mouth and throat: Denies headache, Denies sore throat - Breasts Breasts: bilateral: as per HPI - Cardiovascular Cardiovascular: Denies chest pain, Denies shortness of breath - Respiratory Respiratory: Denies cough - Gastrointestinal Gastrointestinal: Reports constipation - Genitourinary (Female) Genitourinary: Denies dysuria, Denies hematuria - Menstruation Menstruation: Reports postmenopausal - Musculoskeletal Comment: left leg surgery - Integumentary Integumentary: Denies pruritus, Denies rash - Neurological Neurological: Denies numbness, Denies weakness - Psychiatric Comment: Bipolar - Endocrine Endocrine: Denies fatigue, Denies weight change - Hematologic/Lymphatic Comment: none - Allergic/Immunologic Allergic/Immunologic: Reports as per HPI Objective - Vital Signs Vital signs: Vital Signs Temp 97.9 F 09/30/22 11:55 Pulse 64 09/30/22 11:55 Resp 17 09/30/22 11:55 BP 93/64 09/30/22 11:55 Pulse Ox 99 09/30/22 11:55 FiO2 Intake & Output 09/29/22 09/30/22 09/30/22 18:59 06:59 18:59 Weight 51.71 kg - Constitutional General appearance: Present: cooperative - EENT Eyes: Present: EOMI ENT: Present: hearing grossly normal - Neck Neck: Present: normal ROM - Respiratory Respiratory: bilateral: CTA - Cardiovascular Heart sounds: normal: S1, S2 - Gastrointestinal General gastrointestinal: Present: soft - Integumentary Integumentary: Present: normal turgor - Musculoskeletal Musculoskeletal: Present: gait normal - Psychiatric Psychiatric: Present: A&O x's 3, appropriate affect, intact judgment & insight - Additional findings Additional findings: Breast Exam: BRA: 34B Inspection: Bilateral grade 2 ptosis, well-healed scar left breast from prior surgery Palpation: Right breast: Multiple positional exam no dominant masses or nodules of concern Right axilla: No adenopathy of concern Left breast: Well-healed scar from prior surgery no dominant masses or nodules of concern and multi-positional exam, fibrocystic changes Left axilla: No adenopathy of concern Assessment and Plan Assessment: Impression: Left breast stage IA invasive ductal carcinoma high cholesterol low blood pressure: midodrine tardive dyskinese chronic constipation bipolar Plan: Bilateral mammogram in February 2023 Continue tamoxifen Follow-up sooner any questions or concerns CC: Dr. Frausto
== END ==
LOC: WWCWWP 11:38
PROVIDERS: ATTEND Surgery
DX: C50.912 Malignant neoplasm of unspecified site of left female breast (principal); E78.00 Pure hypercholesterolemia, unspecified; F31.9 Bipolar disorder, unspecified; K59.00 Constipation, unspecified; Z79.810 Long term (current) use of selective estrogen receptor modulators (SERMs); G24.01 Drug induced subacute dyskinesia; Z88.1 Allergy status to other antibiotic agents

== ENCOUNTER → 2023-02-20 | Outpatient (CLI) | payer MEDICARE, OTHER ==
--- NOTE | 2023-02-20 09:58 | MM ---
Reason for Exam: Follow-up at short interval from prior study. Last screening mammogram was performed 12 month(s) ago. Patient History: Menarche at age 14. Patient has no children. Postmenopausal. Breast cancer, left, age 61. Breast cancer, left, age 62. 05/17/2022, Lumpectomy on the Left side. 05/17/2022, Malignant US breast localization LT on the left side. 03/07/2022, Malignant US biopsy breast VAD LT on the left side. Maternal aunt had breast cancer. Tissue Density: The breast tissue is heterogeneously dense. This may lower the sensitivity of mammography. Findings: Analyzed By CAD. Postoperative changes right breast. No evidence for mass or distortion. No suspicious calcifications. Overall Assessment: Benign, BI-RAD 2 Management: Diagnostic Mammogram of both breasts in 1 year. . Results were given to the patient verbally at the time of exam. Patient should continue monthly self-breast exams. A clinical breast exam by your physician is recommended on an annual basis. This exam should not preclude additional follow-up of suspicious palpable abnormalities. Note on Anna scores and lifetime risk: 1. A Anna score greater than 3% is considered moderate risk. If this is the case, consider specialist referral to assess eligibility for a risk reducing agent. 2. If overall lifetime risk for the development of breast cancer is 20% or higher, the patient may qualify for future screening with alternating mammogram and breast MRI. Electronically signed and approved by: Juma Dasilva M.D. Radiologis
== END | disposition home or self-care (01) ==
LOC: RADMAMWWP 08:51
PROVIDERS: ATTEND Surgery
DX: Z85.3 Personal history of malignant neoplasm of breast (principal); Z78.0 Asymptomatic menopausal state; Z80.3 Family history of malignant neoplasm of breast
CPT/HCPCS: 77066; G0279; 77062

== ENCOUNTER → 2023-03-01 | Outpatient (CLI) | payer MEDICARE, OTHER ==
[2023-03-01 10:58] VITALS: BP 89/54; PULSE 61; RESP 18; TEMP 98.3
--- NOTE | 2023-03-01 11:22 | P.PN ---
Subjective Progress Note Date: 03/01/23 Principal diagnosis: Left breast invasive ductal carcinoma, [id number]- Stage IA dx. February 2022 left breast invasive ductal cancer; [id number]-G1 Allyssa is a 62-year-old mentally challenged white female who underwent a left breast lumpectomy and sentinel node biopsy and 9622 for a 4 mm invasive ductal carcinoma. 7 nodes were removed and all were negative. She had a course of radiation therapy completed in August 2022. She did not have an aromatase inh ibitor secondary to osteoporosis but was started on tamoxifen. She is not complaining of any problems. She had a bilateral mammogram performed on which was BIRADS 2. She was seen with Nae Tejada from the [facility] [id number] reviewed Caffiene: 2 cups/day nicotine: none chocolate: occasional hormones: none Family history: patient basal cell cancer neice: ? type unknown Hormonal History: menarche: 14 G0 menopause: 49 BCP: none hormones: none Surgical History: skin basal cell cancer garfield in her left leg Medical History: high cholesterol low blood pressure: midodrine tardive dyskinese chronic constipation bipolar Social History: Nicotine: Negative Alcohol: Negative Drugs: Negative - Constitutional Constitutional: Denies chills, Denies fever - EENT Eyes: denies blurred vision, denies pain Ears: deny: decreased hearing, tinnitus Ears, nose, mouth and throat: Denies headache, Denies sore throat - Breasts Breasts: bilateral: as per HPI - Cardiovascular Cardiovascular: Denies chest pain, Denies shortness of breath - Respiratory Respiratory: Denies cough - Gastrointestinal Gastrointestinal: Reports constipation - Genitourinary (Female) Genitourinary: Denies dysuria, Denies hematuria - Menstruation Menstruation: Reports postmenopausal - Musculoskeletal Comment: left leg surgery - Integumentary Integumentary: Denies pruritus, Denies rash - Neurological Neurological: Denies numbness, Denies weakness - Psychiatric Comment: Bipolar - Endocrine Endocrine: Denies fatigue, Denies weight change - Hematologic/Lymphatic Comment: none - Allergic/Immunologic Allergic/Immunologic: Reports as per HPI Objective - Vital Signs Vital signs: Vital Signs Temp 98.3 F 03/01/23 10:55 Pulse 61 03/01/23 10:55 Resp 18 03/01/23 10:55 BP 89/54 03/01/23 10:55 Pulse Ox 100 03/01/23 10:55 FiO2 Intake & Output 02/28/23 03/01/23 03/01/23 18:59 06:59 18:59 Weight 47.174 kg - Constitutional General appearance: Present: cooperative - EENT Eyes: Present: EOMI ENT: Present: hearing grossly normal - Neck Neck: Present: normal ROM - Respiratory Respiratory: bilateral: CTA - Cardiovascular Rhythm: regular Heart sounds: normal: S1, S2 - Gastrointestinal General gastrointestinal: Present: soft - Integumentary Integumentary: Present: normal turgor - Musculoskeletal Musculoskeletal: Present: gait normal - Psychiatric Psychiatric: Present: A&O x's 3, appropriate affect, intact judgment & insight - Additional findings Additional findings: Breast Exam: BRA: 34B Inspection: Bilateral grade 2 ptosis, well-healed scar left breast from prior surgery Palpation: Right breast: Multiple positional exam no dominant masses or nodules of concern Right axilla: No adenopathy of concern Left breast: Well-healed scar from prior surgery no dominant masses or nodules of concern and multi-positional exam, fibrocystic changes Left axilla: No adenopathy of concern Assessment and Plan Assessment: Impression: Left breast stage IA invasive ductal carcinoma high cholesterol low blood pressure: midodrine tardive dyskinese chronic constipation bipolar bilateral mammogram on 02-20-23 BIRAD 2 Plan: Bilateral mammogram in February 2024 Continue tamoxifen/ surveillence of uterus as per medical oncology, she has an appointment with them in the near future follow up in 6 months, Follow-up sooner any questions or concerns CC: Dr. Frausto
== END ==
LOC: WWCWWP 10:28
PROVIDERS: ATTEND Surgery
DX: D05.12 Intraductal carcinoma in situ of left breast (principal); E78.00 Pure hypercholesterolemia, unspecified; F31.9 Bipolar disorder, unspecified; K59.09 Other constipation; G24.01 Drug induced subacute dyskinesia; Z79.2 Long term (current) use of antibiotics; R03.1 Nonspecific low blood-pressure reading; Z17.0 Estrogen receptor positive status [ER+]; Z88.0 Allergy status to penicillin; Z88.1 Allergy status to other antibiotic agents; Z88.8 Allergy status to other drugs, medicaments and biological substances

== ENCOUNTER 2023-03-15 11:07 | Emergency (ER) | payer MEDICARE, OTHER ==
[2023-03-15 11:23] VITALS: TEMP 97.8
[2023-03-15] MEDS ORDERED: MECLIZINE 25 MG TAB PO STA (14:08)
[2023-03-15] MEDS ORDERED: ONDANSETRON 4 MG/2 ML VIAL IVP STA (14:13)
--- NOTE | 2023-03-15 14:13 | ED ---
General Adult HPI - General Chief complaint: Dizziness Stated complaint: dizziness, vomiting Time Seen by Provider: 03/15/23 13:44 Source: patient, RN notes reviewed, old records reviewed, Caregiver Mode of arrival: wheelchair Limitations: no limitations - History of Present Illness Initial comments: This is a 62-year-old female with a past medical history significant for vertigo. Patient states that his assisted living facility. Patient yesterday b ecame very dizzy and then started to vomit and that continues today with no improvement. Sent her into the emergency department to be evaluated. Patient has been refusing to take her meclizine 3 times a day per the staff because she insists that the meclizine is making her more dizzy. Patient has had no recent trauma that anyone knows of. Patient has not had any fever patient is not complaining of any pain according to staff. Patient herself is a very poor historian. - Related Data Home Medications Medication Instructions Recorded Confirmed Docusate [Colace] 100 mg PO HS@199901/30/16 03/15/23 Cando Carbonate [Cando 450 mg PO BID@07,199901/30/16 03/15/23 Carbonate ER] Midodrine [ProAmatine] 5 mg PO TID@0700,1499,199901/30/16 03/15/23 Atorvastatin [Lipitor] 20 mg PO HS@199907/14/20 03/15/23 Benztropine Mesylate [Cogentin] 2 mg PO DAILY@0707/14/20 03/15/23 Deutetrabenazine [Austedo] 6 mg PO BID@699,199907/14/20 03/15/23 Deutetrabenazine [Austedo] 9 mg PO BID@07,199907/14/20 03/15/23 Linaclotide [Linzess] 145 mcg PO HS@199907/14/20 03/15/23 Multivit-Min/FA/Lycopen/Lutein 1 tab PO DAILY@69907/14/20 03/15/23 [Centrum Silver Tablet] Omeprazole [PriLOSEC] 20 mg PO DAILY@0700 07/14/20 03/15/23 Ascorbic Acid [Vitamin C with Carey 1,000 mg PO DAILY@69905/13/22 03/15/23 Hips] Lactulose 10 gm PO BID@0700,199905/13/22 03/15/23 OLANZapine [ZyPREXA] 40 mg PO HS@199905/13/22 03/15/23 ARIPiprazole [Abilify] 20 mg PO DAILY@69903/15/23 03/15/23 Calcium Carbonate/Vitamin D3 1 tab PO BID@0700,199903/15/23 03/15/23 [Calcium 600 mg-Vit D3 10 mcg (400 Unit)] Klonopin 1mg Odt 1 mg PO HS@199903/15/23 03/15/23 Tamoxifen Citrate [Nolvadex] 20 mg PO DAILY@69903/15/23 03/15/23 polyethylene glycoL 3350 [Miralax] 17 gm PO HS@199903/15/23 03/15/23 Previous Rx's Medication Instructions Recorded Meclizine [Antivert] 25 mg PO TID PRN #12 tab 11/08/22 Allergies Allergy/AdvReac Type Severity Reaction Status Date / Time divalproex sodium Allergy Unknown Verified 03/15/23 13:52 [From Depakote] Penicillins Allergy Unknown Verified 03/15/23 13:52 valproic acid Allergy Unknown Verified 03/15/23 13:52 Review of Systems ROS Statement: Those systems with pertinent positive or pertinent negative responses have been documented in the HPI. ROS Other: All systems not noted in ROS Statement are negative. Past Medical History Past Medical History: Cancer, GERD/Reflux, Hyperlipidemia Additional Past Medical History / Comment(s): Current left breast cancer.Low blood pressure, hx choking episode few yrs ago, constipation, hx basal cell cancer, TARDIVE DYSKINESIA, MANIC DEPRESSIVE DISORDER OF DEPRESSIVE KIND, MENTAL CHALLENGES. History of Any Multi-Drug Resistant Organisms: None Reported Past Surgical History: Orthopedic Surgery Additional Past Surgical History / Comment(s): Surgery for fracture of right leg with plates and pins, COLONOSCOPY, SKIN CANCER REMOVAL, no other hx at assisted living home. Past Anesthesia/Blood Transfusion Reactions: No Reported Reaction, Unable to Obtain Additional Past Anesthesia/Blood Transfusion Reaction / Comment(s): No hx avaialble per [facility]. Past Psychological History: Anxiety, Bipolar, Depression Smoking Status: Never smoker Past Alcohol Use History: None Reported Past Drug Use History: None Reported - Past Family History Brother(s) Family Medical History: Deep Vein Thrombosis (DVT) General Exam - General Exam Comments Initial Comments: GENERAL: Patient is well-developed and well-nourished. Patient is nontoxic and well- hydrated and is in mild distress. ENT: Neck is soft and supple. No significant lymphadenopathy is noted. Oropharynx is clear. Moist mucous membranes. Neck has full range of motion without eliciting any pain. EYES: The sclera were anicteric and conjunctiva were pink and moist. Extraocular movements were intact and pupils were equal round and reactive to light. Eyelids were unremarkable. PULMONARY: Unlabored respirations. Good breath sounds bilaterally. No audible rales rhonchi or wheezing was noted. CARDIOVASCULAR: There is a regular rate and rhythm without any murmurs gallops or rubs. ABDOMEN: Soft and nontender with normal bowel sounds. SKIN: Skin is clear with no lesions or rashes and otherwise unremarkable. NEUROLOGIC: Patient is alert and oriented x3. Cranial nerves II through XII are grossly intact. Motor and sensory are also intact. Normal speech, volume and content. Symmetrical smile. Finger to nose testing is normal bilaterally MUSCULOSKELETAL: Normal extremities with adequate strength and full range of motion. No lower extremity swelling or edema. No calf tenderness. LYMPHATICS: No significant lymphadenopathy is noted PSYCHIATRIC: Normal psychiatric evaluation. Limitations: no limitations Course Vital Signs 03/15/23 03/15/23 11:20 13:56 Temperature 97.8 F Pulse Rate 65 62 Respiratory 16 18 Rate Blood Pressure 97/62 101/62 O2 Sat by Pulse 99 96 Oximetry Medical Decision Making - Medical Decision Making EKG was interpreted by myself shows a sinus bradycardia 53 bpm SC interval 170 QRS is 93 QT intervals 428 QTC is 411. Patient's EKG shows no ST segment elevation or depression. Was pt. sent in by a medical professional or institution (, PA, MIGRANT LEADER, urgent care, hospital, or jail...) When possible be specific @ -Patient was sent in from the assisted living facility Did you speak to anyone other than the patient for history (EMS, parent, family, police, friend...)? What history was obtained from this source @ -History FROM the caregiver Did you review nursing and triage notes (agree or disagree)? Why? @ -I reviewed and agree with nursing and triage notes Were old charts reviewed (outside hosp., previous admission, EMS record, old EKG, old radiological studies, urgent care reports/EKG's, jail records)? Report findings @ -I reviewed prior charts from prior lab work Differential Diagnosis (chest pain, altered mental status, abdominal pain women, abdominal pain men, vaginal bleeding, weakness, fever, dyspnea, syncope, headach e, dizziness, GI bleed, back pain, seizure, CVA, palpatations, mental health, musculoskeletal)? @ -Differential Dizziness: Benign paroxysmal positional Vertigo, Menieres disease, otitis media, acoustic neuroma, vertebrobasilar insufficiency, cerebellar stroke, encephalitis, hyp ovolemic, arrhythmia, coronary artery syndrome, anemia, this is not meant to be an all-inclusive list EKG interpreted by me (3pts min.). @ -As above X-rays interpreted by me (1pt min.). @ -Chest x-ray showed no acute abnormality CT interpreted by me (1pt min.). @ -CT of the brain showed no acute abnormality U/S interpreted by me (1pt. min.). @ -None done What testing was considered but not performed or refused? (CT, X-rays, U/S, labs)? Why? @ -None What meds were considered but not given or refused? Why? @ -None Did you discuss the management of the patient with other professionals (professionals i.e. , PA, MIGRANT LEADER, lab, RT, psych nurse, social work program coordinator, website project manager, teacher, natural resource officer, mental health case manager)? Give summary @ -No Was smoking cessation discussed for >3mins.? @ -No Was critical care preformed (if so, how long)? @ -No Were there social determinants of health that impacted care today? How? (Homelessness, low income, unemployed, alcoholism, drug addiction, transportation, low edu. Level, literacy, decrease access to med. care, [facility], rehab)? @ -No Was there de-escalation of care discussed even if they declined (Discuss DNR or withdrawal of care, Hospice)? DNR status @ -No What co-morbidities impacted this encounter? (DM, HTN, Smoking, COPD, CAD, C ancer, CVA, ARF, Chemo, Hep., AIDS, mental health diagnosis, sleep apnea, morbid obesity)? @ -None Was patient admitted / discharged? Hospital course, mention meds given and route, prescriptions, significant lab abnormalities, going to OR and other pertinent info. @ -Patient was given Antivert in the emergency room was able to ambulate with out problem. Patient did have elevated white count but no signs of infection no complaints of a cough urinary tract infection she did do some vomiting and assumed it was from the vertigo but may have had a little infection causing her some vomiting. Patient has no abdominal pain. Undiagnosed new problem with uncertain prognosis? @ -No Drug Therapy requiring intensive monitoring for toxicity (Heparin, Nitro, Insulin, Cardizem)? @ -No Were any procedures done? @ -No Diagnosis/symptom? @ -Vertigo Acute, or Chronic, or Acute on Chronic? @ -Acute Uncomplicated (without systemic symptoms) or Complicated (systemic symptoms)? @ -Complicated Side effects of treatment? @ -No Exacerbation, Progression, or Severe Exacerbation? @ -No Poses a threat to life or bodily function? How? (Chest pain, [place], [place], pneumonia, PE, COPD, DKA, ARF, appy, cholecystitis, CVA, Diverticulitis, Homicidal, Suicidal, threat to staff... and all critical care pts) @ -No Diagnosis/symptom? @ -Leukocytosis Acute, or Chronic, or Acute on Chronic? @ -Acute Uncomplicated (without systemic symptoms) or Complicated (systemic symptoms)? @ -Uncomplicated Side effects of treatment? @ -none Exacerbation, Progression, or Severe Exacerbation] @ -no Poses a threat to life or bodily function? @ -no - Lab Data Result diagrams: 03/15/23 13:56 03/15/23 13:56 Lab Results 03/15/23 03/15/23 03/15/23 Range/Units 13:56 13:56 13:56 WBC 16.5 H (3.8-10.6) k/uL RBC 4.35 (3.80-5.40) m/uL Hgb 12.8 (11.4-16.0) gm/dL Hct 38.8 (34.0-46.0) % MCV 89.2 (80.0-100.0) fL MCH 29.3 (25.0-35.0) pg MCHC 32.9 (31.0-37.0) g/dL RDW 13.3 (11.5-15.5) % Plt Count 197 (150-450) k/uL MPV 8.7 Neutrophils % 90 % Lymphocytes % 4 % Monocytes % 5 % Eosinophils % 0 % Basophils % 0 % Neutrophils # 14.9 H (1.3-7.7) k/uL Lymphocytes # 0.6 L (1.0-4.8) k/uL Monocytes # 0.8 (0-1.0) k/uL Eosinophils # 0.0 (0-0.7) k/uL Basophils # 0.0 (0-0.2) k/uL PT 10.8 (9.0-12.0) sec INR 1.0 (<1.2) APTT 21.3 L (22.0-30.0) sec Sodium 136 L (137-145) mmol/L Potassium 4.5 (3.5-5.1) mmol/L Chloride 100 (98-107) mmol/L Carbon Dioxide 29 (22-30) mmol/L Anion Gap 7 mmol/L BUN 18 H (7-17) mg/dL Creatinine 0.71 (0.52-1.04) mg/dL Est GFR (CKD-EPI)AfAm >90 (>60 ml/min/1.73 sqM) Est GFR (CKD-EPI)NonAf >90 (>60 ml/min/1.73 sqM) Glucose 109 H (74-99) mg/dL Calcium 10.0 (8.4-10.2) mg/dL Magnesium 2.3 (1.6-2.3) mg/dL Total Bilirubin 0.6 (0.2-1.3) mg/dL AST 38 H (14-36) U/L ALT 34 (4-34) U/L Alkaline Phosphatase 27 L (38-126) U/L Troponin I (0.000-0.034) ng/mL Total Protein 6.6 (6.3-8.2) g/dL Albumin 4.0 (3.5-5.0) g/dL Urine Color Urine Appearance (Clear) Urine pH (5.0-8.0) Ur Specific [place] (1.001-1.035) Urine Protein (Negative) Urine Glucose (UA) (Negative) Urine Ketones (Negative) Urine Blood (Negative) Urine Nitrite (Negative) Urine Bilirubin (Negative) Urine Urobilinogen (<2.0) mg/dL Ur Leukocyte Esterase (Negative) Urine RBC (0-5) /hpf Urine WBC (0-5) /hpf Ur Squamous Epith Cells (0-4) /hpf Amorphous Sediment (None) /hpf Urine Bacteria (None) /hpf Urine Mucus (None) /hpf 03/15/23 03/15/23 Range/Units 13:56 15:24 WBC (3.8-10.6) k/uL RBC (3.80-5.40) m/uL Hgb (11.4-16.0) gm/dL Hct (34.0-46.0) % MCV (80.0-100.0) fL MCH (25.0-35.0) pg MCHC (31.0-37.0) g/dL RDW (11.5-15.5) % Plt Count (150-450) k/uL MPV Neutrophils % % Lymphocytes % % Monocytes % % Eosinophils % % Basophils % % Neutrophils # (1.3-7.7) k/uL Lymphocytes # (1.0-4.8) k/uL Monocytes # (0-1.0) k/uL Eosinophils # (0-0.7) k/uL Basophils # (0-0.2) k/uL PT (9.0-12.0) sec INR (<1.2) APTT (22.0-30.0) sec Sodium (137-145) mmol/L Potassium (3.5-5.1) mmol/L Chloride (98-107) mmol/L Carbon Dioxide (22-30) mmol/L Anion Gap mmol/L BUN (7-17) mg/dL Creatinine (0.52-1.04) mg/dL Est GFR (CKD-EPI)AfAm (>60 ml/min/1.73 sqM) Est GFR (CKD-EPI)NonAf (>60 ml/min/1.73 sqM) Glucose (74-99) mg/dL Calcium (8.4-10.2) mg/dL Magnesium (1.6-2.3) mg/dL Total Bilirubin (0.2-1.3) mg/dL AST (14-36) U/L ALT (4-34) U/L Alkaline Phosphatase (38-126) U/L Troponin I <0.012 (0.000-0.034) ng/mL Total Protein (6.3-8.2) g/dL Albumin (3.5-5.0) g/dL Urine Color Yellow Urine Appearance Cloudy H (Clear) Urine pH 6.5 (5.0-8.0) Ur Specific [place] 1.021 (1.001-1.035) Urine Protein Trace H (Negative) Urine Glucose (UA) Negative (Negative) Urine Ketones 2+ H (Negative) Urine Blood Negative (Negative) Urine Nitrite Negative (Negative) Urine Bilirubin Negative (Negative) Urine Urobilinogen <2.0 (<2.0) mg/dL Ur Leukocyte Esterase Negative (Negative) Urine RBC 2 (0-5) /hpf Urine WBC 1 (0-5) /hpf Ur Squamous Epith Cells 1 (0-4) /hpf Amorphous Sediment Rare H (None) /hpf Urine Bacteria Rare H (None) /hpf Urine Mucus Moderate H (None) /hpf Disposition Clinical Impression: Vertigo, Leukocytosis Disposition: HOME SELF-CARE Condition: Good Instructions (If sedation given, give patient instructions): Vertigo (ED), Leukocytosis (ED) Additional Instructions: Patient should take her Antivert as previously prescribed per patient should use a walker anytime she is unstable. Is patient prescribed a controlled substance at d/c from ED?: No Referrals: Seth Frausto MD [Primary Care Provider] - 1-2 days Time of Disposition: 16:46
[2023-03-15 14:14] VITALS: PULSE 62; RESP 18
--- NOTE | 2023-03-15 14:30 | XR ---
EXAMINATION TYPE: XR chest 2V DATE OF EXAM: 03/15/2023 COMPARISON: NONE HISTORY: Shortness of breath TECHNIQUE: Frontal and lateral views of the chest are obtained. FINDINGS: Scattered senescent parenchymal changes noted. Hyperinflation compatible with COPD. No evidence for infiltrate. No evidence for atelectasis. Heart size is stable. Mediastinal structures are stable and grossly unremarkable. No evidence for hilar prominence. Degenerative changes dorsal spine. IMPRESSION: 1. No evidence for acute pulmonary disease.
[2023-03-15 14:31] LABS: Basophils % (A) 0 %; Eosinophils % (A) 0 %; HCT 38.8 % (34.0-46.0); HGB 12.8 gm/dL (11.4-16.0); Lymphocytes # (A) 0.6 k/uL (1.0-4.8); Lymphocytes % (A) 4 %; MCH 29.3 pg (25.0-35.0); MCHC 32.9 g/dL (31.0-37.0); MCV 89.2 fL (80.0-100.0); Mean Platelet Volume 8.7; Monocytes # (A) 0.8 k/uL (0-1.0); Monocytes % (A) 5 %; Neutrophils # (A) 14.9 k/uL (1.3-7.7); Neutrophils % (A) 90 %; Platelet Count 197 k/uL (150-450); RBC 4.35 m/uL (3.80-5.40); RDW 13.3 % (11.5-15.5); WBC 16.5 k/uL (3.8-10.6)
[2023-03-15 14:39] LABS: Prothrombin Time 10.8 sec (9.0-12.0)
[2023-03-15 14:44] LABS: Partial Thromboplastin Time 21.3 sec (22.0-30.0)
[2023-03-15 15:01] LABS: ALT 34 U/L (4-34); AST 38 U/L (14-36); African American GFR (CKD) >90 (>60 ml/min/1.73 sqM); Alkaline Phosphatase 27 U/L (38-126); Anion Gap 7 mmol/L; Blood Urea Nitrogen 18 mg/dL (7-17); Carbon Dioxide 29 mmol/L (22-30); Chloride 100 mmol/L (98-107); Glucose 109 mg/dL (74-99); Magnesium 2.3 mg/dL (1.6-2.3); Non-African American GFR(CKD) >90 (>60 ml/min/1.73 sqM); Potassium 4.5 mmol/L (3.5-5.1); Sodium 136 mmol/L (137-145); Total Bilirubin 0.6 mg/dL (0.2-1.3); Total Protein 6.6 g/dL (6.3-8.2)
[2023-03-15 16:07] LABS: Amorphous Sediment,Urine Rare /hpf; Appearance,Urine Cloudy (Clear); Bacteria,Urine Rare /hpf; Bilirubin,Urine Negative (Negative); Blood,Urine Negative (Negative); Color,Urine Yellow; Glucose,Urine (UA) Negative (Negative); Leukocyte Esterase,Urine Negative (Negative); Mucus,Urine Moderate /hpf; Nitrite,Urine Negative (Negative); PH, Urine 6.5 (5.0-8.0); Protein,Urine Trace (Negative); RBC,Urine 2 /hpf (0-5); Specific Gravity,Urine 1.021 (1.001-1.035); Squamous Epithelial Cell,Urine 1 /hpf (0-4); Urobilinogen,Urine <2.0 mg/dL (<2.0); WBC,Urine 1 /hpf (0-5)
[2023-03-15 16:24] LABS: Ketones,Urine 2+ (Negative)
[2023-03-15 16:36] VITALS: BP 114/62
== END 2023-03-15 23:55 | disposition home or self-care (01) ==
LOC: EC 11:07
DX: R42 Dizziness and giddiness (principal); R11.10 Vomiting, unspecified; D72.829 Elevated white blood cell count, unspecified; E78.5 Hyperlipidemia, unspecified; K21.9 Gastro-esophageal reflux disease without esophagitis; F31.9 Bipolar disorder, unspecified; F41.9 Anxiety disorder, unspecified; Z79.899 Other long term (current) drug therapy; Z88.0 Allergy status to penicillin; Z88.8 Allergy status to other drugs, medicaments and biological substances
CPT/HCPCS: 36415; 93005; 80053; 83735; 84484; 85025; 85610; 85730; 81001; 71046; 99285; 96374; J2405

== ENCOUNTER → 2023-12-21 | Outpatient (CLI) | payer MEDICARE, OTHER ==
--- NOTE | 2023-12-21 14:18 | P.PN ---
Subjective Progress Note Date: 12/21/23 Principal diagnosis: stage IA left breast IDC 202112-21-23 Principal diagnosis: Left breast invasive ductal carcinoma, [id number]+AK+Her2- Stage IA dx. February 2022 left breast invasive ductal cancer; [id number]+AK+Her2-G1 Allyssa is a 62-year-old mentally challenged white female who underwent a left breast lumpectomy and sentinel node biopsy and 9622 for a 4 mm invasive ductal carcinoma. 7 nodes were removed and all were negative. She had a course of radiation therapy completed in August 2022. She did not have an aromatase inhibitor secondary to osteoporosis but was started on tamoxifen. She is not complaining of any problems. She had a bilateral mammogram performed on which was BIRADS 2. She was seen with Keila Travis from [facility]. She had a psychiatric admission in August 2023 and September 2023. Note from medical oncology 12-12-23 reviewed Caffiene: 2 cups/day nicotine: none chocolate: occasional hormones: none Family history: patient basal cell cancer neice: ? type unknown Hormonal History: menarche: 14 G0 menopause: 49 BCP: none hormones: none Surgical History: skin basal cell cancer garfield in her left leg left breast lumpectomy and SNB Medical History: high cholesterol low blood pressure: midodrine tardive dyskinese chronic constipation bipolar Social History: Nicotine: Negative Alcohol: Negative Drugs: Negative - Constitutional Constitutional: Denies chills, Denies fever - EENT Eyes: denies blurred vision, denies pain Ears: deny: decreased hearing, tinnitus Ears, nose, mouth and throat: Denies headache, Denies sore throat - Breasts Breasts: bilateral: as per HPI - Cardiovascular Cardiovascular: Denies chest pain, Denies shortness of breath - Respiratory Respiratory: Denies cough - Gastrointestinal Gastrointestinal: Reports constipation - Genitourinary (Female) Genitourinary: Denies dysuria, Denies hematuria - Menstruation Menstruation: Reports postmenopausal - Musculoskeletal Comment: left leg surgery - Integumentary Integumentary: Denies pruritus, Denies rash - Neurological Neurological: Denies numbness, Denies weakness - Psychiatric Comment: Bipolar - Endocrine Endocrine: Denies fatigue, Denies weight change - Hematologic/Lymphatic Comment: none - Allergic/Immunologic Allergic/Immunologic: Reports as per HPI Objective - Vital Signs Vital signs: Intake & Output 12/20/23 12/21/23 12/21/23 18:59 06:59 18:59 Weight 52.163 kg - Constitutional General appearance: Present: cooperative - EENT Eyes: Present: EOMI ENT: Present: hearing grossly normal - Neck Neck: Present: normal ROM - Respiratory Respiratory: bilateral: CTA - Cardiovascular Rhythm: regular Heart sounds: normal: S1, S2 - Gastrointestinal General gastrointestinal: Present: soft - Integumentary Integumentary: Present: normal turgor - Musculoskeletal Musculoskeletal: Present: gait normal - Psychiatric Psychiatric: Present: A&O x's 3, appropriate affect, intact judgment & insight - Additional findings Additional findings: Breast Exam: BRA: 34B Inspection: Bilateral grade 2 ptosis, well-healed scar left breast from prior surgery Palpation: Right breast: Multiple positional exam no dominant masses or nodules of concern Right axilla: No adenopathy of concern Left breast: Well-healed scar from prior surgery no dominant masses or nodules of concern and multi-positional exam, fibrocystic changes Left axilla: No adenopathy of concern Assessment and Plan Assessment: Impression: Left breast stage IA invasive ductal carcinoma high cholesterol low blood pressure: midodrine tardive dyskinese chronic constipation bipolar bilateral mammogram on 02-20-23 BIRAD 2 Plan: Bilateral mammogram in February 2024 follow up after this Continue tamoxifen/ surveillence of uterus as per medical oncology, she has an appointment with them in the near future follow up in 6 months, Follow-up sooner any questions or concerns CC: Dr. Frausto
[2023-12-21 14:21] VITALS: BP 104/67; PULSE 89; RESP 16; TEMP 97.8
== END ==
LOC: WWCWWP 13:23
PROVIDERS: ATTEND Surgery
DX: R92.8 Other abnormal and inconclusive findings on diagnostic imaging of breast (principal); C50.912 Malignant neoplasm of unspecified site of left female breast; E78.00 Pure hypercholesterolemia, unspecified; I95.9 Hypotension, unspecified; G24.4 Idiopathic orofacial dystonia; K59.09 Other constipation; F31.9 Bipolar disorder, unspecified; M81.0 Age-related osteoporosis without current pathological fracture; Z92.3 Personal history of irradiation; Z88.0 Allergy status to penicillin; Z88.8 Allergy status to other drugs, medicaments and biological substances; Z17.0 Estrogen receptor positive status [ER+]

== ENCOUNTER → 2024-02-28 | Outpatient (CLI) | payer MEDICARE, OTHER ==
--- NOTE | 2024-02-28 13:48 | MM ---
Reason for Exam: Follow-up at short interval from prior study. Last screening mammogram was performed 12 month(s) ago. Patient History: Menarche at age 14. Patient has no children. Postmenopausal. Breast cancer, left, age 61. Breast cancer, left, age 62. 05/17/2022, Lumpectomy on the Left side. 05/17/2022, Malignant US breast localization LT on the left side. 03/07/2022, Malignant US biopsy breast VAD LT on the left side. Maternal aunt had breast cancer. Tissue Density: The breasts are heterogeneously dense, which may obscure small masses. Findings: Analyzed By CAD. Postoperative changes of lumpectomy left breast. Persistent post radiation skin thickening. No evidence for new mass within either breast. No suspicious microcalcifications. Overall Assessment: Benign, BI-RAD 2 Management: Diagnostic Mammogram of both breasts in 1 year. . Results were given to the patient verbally at the time of exam. Patient should continue monthly self-breast exams. A clinical breast exam by your physician is recommended on an annual basis. This exam should not preclude additional follow-up of suspicious palpable abnormalities. Note on Anna scores and lifetime risk: 1. A Anna score greater than 3% is considered moderate risk. If this is the case, consider specialist referral to assess eligibility for a risk reducing agent. 2. If overall lifetime risk for the development of breast cancer is 20% or higher, the patient may qualify for future screening with alternating mammogram and breast MRI. Electronically signed and approved by: Juma Dasilva M.D. Radiologis
== END | disposition home or self-care (01) ==
LOC: RADMAMWWP 13:20
PROVIDERS: ATTEND Surgery
DX: R92.333 Mammographic heterogeneous density, bilateral breasts (principal); Z85.3 Personal history of malignant neoplasm of breast; Z78.0 Asymptomatic menopausal state; C50.912 Malignant neoplasm of unspecified site of left female breast; Z80.3 Family history of malignant neoplasm of breast
CPT/HCPCS: 77066; G0279; 77062

== ENCOUNTER → 2024-03-29 | Outpatient (CLI) | payer MEDICARE, OTHER ==
[2024-03-29 12:40] VITALS: BP 116/76; PULSE 79; RESP 17; TEMP 97.9
--- NOTE | 2024-03-29 12:42 | P.PN ---
Subjective Progress Note Date: 03/29/24 03-29-24 Left breast invasive ductal carcinoma, [id number]+Her2- Stage IA dx. February 2022 Allyssa is a 63-year-old mentally challenged white female who underwent a left breast lumpectomy and sentinel node biopsy on 9621 for a 4 mm invasive ductal carcinoma. 7 nodes were removed and all were negative. She had a course of radiation therapy completed in August 2022. She did not have an aromatase inhibitor secondary to osteoporosis but was started on tamoxifen. She is not complaining of any problems. She had a bilateral mammogram performed on which was BIRADS 2, and personally interpreted She was seen with Nae Tejada from [facility]. She had a psychiatric admission in August 2023 and stayed until mid Oct. at [facility], on [facility]. Note from medical oncology 12-12-23 reviewed on tamoxifen Caffiene: 2 cups/day nicotine: none chocolate: occasional hormones: none Family history: patient basal cell cancer neice: ? type unknown Hormonal History: menarche: 14 G0 menopause: 49 BCP: none hormones: none Surgical History: skin basal cell cancer [place] in her left leg left breast lumpectomy and SNB Medical History: high cholesterol low blood pressure: midodrine tardive dyskinese chronic constipation bipolar Social History: Nicotine: Negative Alcohol: Negative Drugs: Negative - Constitutional Constitutional: Denies chills, Denies fever - EENT Eyes: denies blurred vision, denies pain Ears: deny: decreased hearing, tinnitus Ears, nose, mouth and throat: Denies headache, Denies sore throat - Breasts Breasts: bilateral: as per HPI - Cardiovascular Cardiovascular: Denies chest pain, Denies shortness of breath - Respiratory Respiratory: Denies cough - Gastrointestinal Gastrointestinal: Reports constipation - Genitourinary (Female) Genitourinary: Denies dysuria, Denies hematuria - Menstruation Menstruation: Reports postmenopausal - Musculoskeletal Comment: left leg surgery - Integumentary Integumentary: Denies pruritus, Denies rash - Neurological Neurological: Denies numbness, Denies weakness - Psychiatric Comment: Bipolar - Endocrine Endocrine: Denies fatigue, Denies weight change - Hematologic/Lymphatic Comment: none - Allergic/Immunologic Allergic/Immunologic: Reports as per HPI Objective - Constitutional General appearance: Present: cooperative - EENT Eyes: Present: EOMI ENT: Present: hearing grossly normal - Neck Neck: Present: normal ROM - Respiratory Respiratory: bilateral: CTA - Cardiovascular Heart sounds: normal: S1, S2 - Integumentary Integumentary: Present: normal turgor - Musculoskeletal Musculoskeletal: Present: gait normal - Psychiatric Psychiatric: Present: A&O x's 3, appropriate affect, intact judgment & insight - Additional findings Additional findings: Breast Exam: BRA: 34B Inspection: Bilateral grade 2 ptosis, well-healed scar left breast from prior surgery Palpation: Right breast: Multiple positional exam no dominant masses or nodules of concern Right axilla: No adenopathy of concern Left breast: Well-healed scar from prior surgery no dominant masses or nodules of concern and multi-positional exam, fibrocystic changes Left axilla: No adenopathy of concern Assessment and Plan Assessment: Impression: Left breast stage IA invasive ductal carcinoma high cholesterol low blood pressure: midodrine tardive dyskinese chronic constipation bipolar bilateral mammogram on 02-28-24 BIRAD 2 tolerating tamoxifen Plan: Bilateral mammogram in February 2025 follow up after this Continue tamoxifen/ surveillence of uterus as per medical oncology, she has an appointment with them in the near future follow up in 6 months, Follow-up sooner any questions or concerns CC: Dr. Frausto
== END ==
LOC: WWCWWP 11:00
PROVIDERS: ATTEND Surgery
DX: C50.912 Malignant neoplasm of unspecified site of left female breast (principal); E78.00 Pure hypercholesterolemia, unspecified; M81.0 Age-related osteoporosis without current pathological fracture; I95.9 Hypotension, unspecified; K59.09 Other constipation; G24.9 Dystonia, unspecified; F31.9 Bipolar disorder, unspecified; Z92.3 Personal history of irradiation; Z17.0 Estrogen receptor positive status [ER+]; Z88.8 Allergy status to other drugs, medicaments and biological substances; Z88.0 Allergy status to penicillin

== ENCOUNTER 2024-07-02 21:01 | Emergency (ER) | payer MEDICARE ==
[2024-07-02 21:17] VITALS: RESP 18; TEMP 98.5
--- NOTE | 2024-07-02 21:57 | ED ---
General Adult HPI - General Chief complaint: ENT Stated complaint: Choking on food Time Seen by Provider: 07/02/24 21:27 Source: patient, EMS, RN notes reviewed, old records reviewed Mode of arrival: EMS - History of Present Illness Initial comments: Patient is a 64-year-old female who presents emergency department after choking on an animal cracker at her correction. There was concern that she may have aspirated. Patient's throat feels scratchy. She did clear the animal cracker and EMS saw the patient prior to coming into the emergency department with no signs of distress. [facility] workers wanted the patient evaluated for possible aspiration. Patient has complaint of a mild scratchy throat at this time but otherwise no acute complaints. Denies chest pain, throat pain, abdominal pain, nausea, vomiting, diarrhea. Denies any other acute complaints at this time. Presents for further evaluation at this time. States she cannot drink water as her "body rejects it." She is asking for flavio carol. - Related Data Home Medications Medication Instructions Recorded Confirmed Docusate [Colace] 100 mg PO HS@199901/30/16 03/29/24 Cicero Carbonate [Cicero 450 mg PO BID@0700,199901/30/16 03/29/24 Carbonate ER] Midodrine [ProAmatine] 5 mg PO TID@0700,1499,199901/30/16 03/29/24 Atorvastatin [Lipitor] 20 mg PO HS@199907/14/20 03/29/24 Benztropine Mesylate [Cogentin] 2 mg PO DAILY@69907/14/20 03/29/24 Deutetrabenazine [Austedo] 6 mg PO BID@07,199907/14/20 03/29/24 Deutetrabenazine [Austedo] 9 mg PO BID@07,199907/14/20 03/29/24 Linaclotide [Linzess] 145 mcg PO HS@199907/14/20 03/29/24 Multivit-Min/FA/Lycopen/Lutein 1 tab PO DAILY@0700 07/14/20 03/29/24 [Centrum Silver Tablet] Omeprazole [PriLOSEC] 20 mg PO DAILY@69907/14/20 03/29/24 Ascorbic Acid [Vitamin C with Carey 1,000 mg PO DAILY@69905/13/22 03/29/24 Hips] Lactulose 10 gm PO BID@699,199905/13/22 03/29/24 OLANZapine [ZyPREXA] 40 mg PO HS@199905/13/22 03/29/24 ARIPiprazole [Abilify] 20 mg PO DAILY@69903/15/23 03/29/24 Calcium Carbonate/Vitamin D3 1 tab PO BID@07,199903/15/23 03/29/24 [Calcium 600 mg-Vit D3 10 mcg (400 Unit)] Klonopin 1mg Odt 1 mg PO HS@199903/15/23 03/29/24 Tamoxifen Citrate [Nolvadex] 20 mg PO DAILY@69903/15/23 03/29/24 polyethylene glycoL 3350 [Miralax] 17 gm PO HS@199903/15/23 03/29/24 Previous Rx's Medication Instructions Recorded Meclizine [Antivert] 25 mg PO TID PRN #12 tab 11/08/22 Allergies Allergy/AdvReac Type Severity Reaction Status Date / Time divalproex sodium Allergy Unknown Verified 07/02/24 21:17 [From Depakote] Penicillins Allergy Unknown Verified 07/02/24 21:17 valproic acid Allergy Unknown Verified 07/02/24 21:17 Review of Systems ROS Statement: Those systems with pertinent positive or pertinent negative responses have been documented in the HPI. Review of Systems: CONST: Denies fever EYES: Denies blurry vision ENT: Endorses scratchy throat C/V: Denies Chest pain RESP: Denies shortness of breath GI: Denies abdominal pain : Denies dysuria SKIN: Denies rash. MSK: Denies joint pain. NEURO: Denies headache ROS Other: All systems not noted in ROS Statement are negative. Past Medical History Past Medical History: Cancer, GERD/Reflux, Hyperlipidemia Additional Past Medical History / Comment(s): Current left breast cancer.Low blood pressure, hx choking episode few yrs ago, constipation, hx basal cell cancer, TARDIVE DYSKINESIA, MANIC DEPRESSIVE DISORDER OF DEPRESSIVE KIND, MENTAL CHALLENGES. History of Any Multi-Drug Resistant Organisms: None Reported Past Surgical History: Orthopedic Surgery Additional Past Surgical History / Comment(s): Surgery for fracture of right leg with plates and pins, COLONOSCOPY, SKIN CANCER REMOVAL, no other hx at assisted living home. Past Anesthesia/Blood Transfusion Reactions: No Reported Reaction, Unable to Obtain Additional Past Anesthesia/Blood Transfusion Reaction / Comment(s): No hx avaialble per [facility]. Past Psychological History: Anxiety, Bipolar, Depression Smoking Status: Never smoker Past Alcohol Use History: None Reported Past Drug Use History: None Reported - Past Family History Brother(s) Family Medical History: Deep Vein Thrombosis (DVT) General Exam - General Exam Comments Initial Comments: General: Appears in no acute distress. HEAD: Normal with no signs of head trauma. EYES: EOMI. ENT: Hearing grossly intact. Posterior oropharynx within normal limits. Uvula is midline. No posterior oropharyngeal swelling. No tongue edema. No stridor. Tolerating oral secretions. RESPIRATORY: No respiratory distress.Clear breath sounds bilaterally. No hypoxia. C/V: Regular rate and rhythm. ABD: Abdomen is nondistended. EXT: No obvious deformity. SKIN: No rashes or lesions observed on exposed skin. NEURO: Alert and oriented. Course Vital Signs 07/02/24 07/02/24 21:12 23:07 Temperature 98.5 F Pulse Rate 77 80 Respiratory 18 18 Rate Blood Pressure 110/60 122/84 O2 Sat by Pulse 97 98 Oximetry Medical Decision Making - Medical Decision Making Was pt. sent in by a medical professional or institution ([facility] Steven, WIRE DRAWER, urgent care, hospital, or usp...) When possible be specific @ -No Did you speak to anyone other than the patient for history (EMS, parent, family, police, friend...)? What history was obtained from this source @ -No Did you review nursing and triage notes (agree or disagree)? Why? @ -I reviewed and agree with nursing and triage notes Were old charts reviewed (outside hosp., previous admission, EMS record, old EKG, old radiological studies, urgent care reports/EKG's, usp records)? Report findings @ -No old charts were reviewed Differential Diagnosis (chest pain, altered mental status, abdominal pain women, abdominal pain men, vaginal bleeding, weakness, fever, dyspnea, syncope, headache, dizziness, GI bleed, back pain, seizure, CVA, palpatations, mental health, musculoskeletal)? @ -Aspiration, esophageal foreign body, esophageal abrasion. This list is not all inclusive. EKG interpreted by me (3pts min.). @ -None done X-rays interpreted by me (1pt min.). @ -Chest x-ray reveals no obvious acute cardiopulmonary process. CT interpreted by me (1pt min.). @ -None done U/S interpreted by me (1pt. min.). @ -None done What testing was considered but not performed or refused? (CT, X-rays, U/S, labs)? Why? @ -None What meds were considered but not given or refused? Why? @ -None Did you discuss the management of the patient with other professionals (professionals i.e. , PA, WIRE DRAWER, lab, RT, psych nurse, sexual assault social worker, windlasser, teacher, u.[employer] revenue officer, bilingual patient support caseworker)? Give summary @ -No Was smoking cessation discussed for >3mins.? @ -No Was critical care preformed (if so, how long)? @ -No Were there social determinants of health that impacted care today? How? (Homelessness, low income, unemployed, alcoholism, drug addiction, transportation, low edu. Level, literacy, decrease access to med. care, fpc, rehab)? @ -No Was there de-escalation of care discussed even if they declined (Discuss DNR or withdrawal of care, Hospice)? DNR status @ -No What co-morbidities impacted this encounter? (DM, HTN, Smoking, COPD, CAD, Cancer, CVA, ARF, Chemo, Hep., AIDS, mental health diagnosis, sleep apnea, morbid obesity)? @ -None Was patient admitted / discharged? Hospital course, mention meds given and route, prescriptions, significant lab abnormalities, going to OR and other pertinent info. @ -Patient presents for correction for evaluation for aspiration/food impaction. Exam is unremarkable, patient tolerating oral secretions and cracker apparently cleared while still at the correction.. No respiratory distress. No stridor. We will obtain chest x-ray. We will also trial the patient on liquids and then solid foods. Patient was in agreement this plan. I did offer water which she states she cannot have and therefore she will be given flavio carol initially. Patient otherwise was in agreement with this plan. After observation period of over an hour, and patient tolerating liquids as well as tolerated solid oral intake and feeling improved, I believe it is safer to be discharged home. X-ray unremarkable. No concern for aspiration at this time. Vital signs remained within acceptable limits. No respiratory distress. She was in agreement this plan. She will be discharged home at this time. I instructed the patient to follow up with their PCP in the next 1-3 days. I explained that the patient should return to the emergency department if they experience any worsening symptoms. Strict return precautions were discussed with the patient. The patient expressed understanding of these instructions. I answered all questions that the patient had. The patient was discharged home in good condition with their prescriptions and follow up information. Undiagnosed new problem with uncertain prognosis? @ -No Drug Therapy requiring intensive monitoring for toxicity (Heparin, Nitro, Insulin, Cardizem)? @ -No Were any procedures done? @ -No Diagnosis/symptom? @ -Throat soreness, esophageal food impaction that resolved Acute, or Chronic, or Acute on Chronic? @ -Acute Uncomplicated (without systemic symptoms) or Complicated (systemic symptoms)? @ -Uncomplicated Side effects of treatment? @ -None Exacerbation, Progression, or Severe Exacerbation] @ -No Poses a threat to life or bodily function? @ -Unlikely Disposition Clinical Impression: Throat soreness, Food impaction of esophagus Disposition: HOME SELF-CARE Condition: Good Additional Instructions: Be sure to chew your food completely. Return if worsening symptoms. Is patient prescribed a controlled substance at d/c from ED?: No Referrals: Cedric Mcclain MD [Primary Care Provider] - 1-2 days Time of Disposition: 22:51
--- NOTE | 2024-07-02 22:00 | XR ---
EXAMINATION TYPE: XR chest 2V DATE OF EXAM: 07/02/2024 9:45 PM CLINICAL INDICATION: Female, 64 years old with history of possible aspiration; [facility] COMPARISON: Chest radiographs from 03/15/2023 TECHNIQUE: XR chest 2V Frontal view of the chest. FINDINGS: Lungs/Pleura: There is flattening of the diaphragm with increased lucency of the lungs. No evidence o f pneumothorax, pleural effusion or focal consolidation. Pulmonary vascularity: Unremarkable. Heart/mediastinum: Cardiomediastinal silhouette is unremarkable. Musculoskeletal: No acute osseous pathology. Other findings: None Lines/Tubes: IMPRESSION: 1. No acute cardiopulmonary disease process. 2. COPD changes. [facility], , 07/02/2024 9:57 PM
[2024-07-02] MEDS: IPRATROPIUM-ALBUTEROL 3 ML NEB INHALATION STA (23:03)
[2024-07-02] MEDS: predniSONE 20 MG TAB PO STA (23:03)
[2024-07-02 23:09] VITALS: BP 122/84; PULSE 80
== END 2024-07-02 23:09 | disposition home or self-care (01) ==
LOC: EC 21:01
CPT/HCPCS: 71046; 99283

== ENCOUNTER → 2024-07-22 | Outpatient (CLI) | payer MEDICARE ==
--- NOTE | 2024-07-28 22:53 | BD ---
EXAMINATION TYPE: Axial Bone Density DATE OF EXAM: 07/22/2024 CLINICAL HISTORY: 64 years old Female. ICD-10 CODE: M81.0 OSTEOPOROSIS , Additional History: Height: 63 Weight: 122.6 FRAX RISK QUESTIONS: Alcohol (3 or more units per day): no Family History (Parent hip fracture): no Glucocorticoids (More than 3mos): no (Ex: prednisone, prednisolone, methylprednisolone, dexamethasone, and hydrocortisone). History of Fracture in Adulthood: lt leg Secondary Osteoporosis: 1. Type 1 Diabetes: no 2. Hyperthyroidism: no 3. Menopause before 45: yes 4. Malnutrition: yes 5. Chronic liver disease: no Rheumatoid Arthritis: no Current Tobacco Use: no RISK FACTORS HISTORY OF: Hip Fracture (Right/Left): no Spine Fracture: no History of Wrist Fracture: no Surgery to Spine/Hip(right/left)/Wrist (right/left): no MEDICATIONS: Thyroid Medications:no Osteoporosis Medications: no EXAM MEASUREMENTS: Bone mineral densitometry was performed using the [employer] System. Bone mineral density as measured about the Lumbar spine is: ----- L1-L4(G/cm2): 1.038 T Score Values are as follows: ----- L1: -1.6 ----- L2: -1.6 ----- L3: -0.8 ----- L4: -1.1 ----- L1-L4: -1.2 Z Score Values are as follows: ----- L1: 0.3 ----- L2: 0.3 ----- L3: 1.1 ----- L4: 0.8 ----- L1-L4: 0.7 Bone mineral density has: increased 5.8 % since study of: 07/21/2022 Bone mineral density about the R hip (g/cm2): 0.921 Bone mineral density about the L hip (g/cm2): 0.693` T Score values are as follows: -----R Neck: 1.0 -----L Neck: -2.6 -----R Total: -0.7 -----L Total: -2.5 Z Score values are as follows: -----R Neck: 2.7 -----L Neck: -0.9 -----R Total: 0.7 -----L Total: -1.1 Bone mineral density has: decreased -2.8 % since study of: 07/21/2022 FRAX%s: The graph provided illustrates a 20.5% chance for a major osteoporotic fx and a 4.9% chance f or the hips probability for fx in 10 years time. IMPRESSION: Osteopenia (T Score between -2.5 and -1). There is slightly increased risk of fracture and the patient may be considered for treatment. Re-Screen 2-5 years. NOTE: T-SCORE=SD OF THE YOUNG ADULT MEAN. [facility], , 07/28/2024 10:50 PM
== END | disposition home or self-care (01) ==
LOC: RADBDWWP 12:48
PROVIDERS: ATTEND Internal Medicine
DX: M81.0 Age-related osteoporosis without current pathological fracture (principal); M85.89 Other specified disorders of bone density and structure, multiple sites
CPT/HCPCS: 77080

== ENCOUNTER → 2025-03-24 | Outpatient (CLI) | payer MEDICARE, OTHER ==
--- NOTE | 2025-03-24 13:47 | MM ---
Reason for Exam: Follow-up at short interval from prior study. Last mammogram was performed 1 year(s) and 1 month(s) ago. Patient History: Menarche at age 14. Patient has no children. Postmenopausal. Breast cancer, left, age 61. Breast cancer, left, age 62. 05/17/2022, Lumpectomy on the Left side. 05/17/2022, Malignant US breast localization LT on the left side. 03/07/2022, Malignant US biopsy breast VAD LT on the left side. Maternal aunt had breast cancer. Prior Study Comparison: 02/17/2022 Bilateral MG screening mammo w CAD, [facility]. 03/02/2022 Left US breast workup limited LT, [facility]. 03/02/2022 Left MG 3D work up w/cad LT, [facility]. 03/07/2022 Left MG diagnostic mammo LT wo CAD., [facility]. 05/17/2022 Left MG diagnostic mammo LT wo CAD., [facility]. 02/20/2023 Bilateral MG 3D diag mammo w/cad KARI, [facility]. 02/28/2024 Bilateral MG 3D diag mammo w/cad KARI, [facility]. Tissue Density: The breasts are extremely dense, which lowers the sensitivity of mammography. Findings: Analyzed By CAD. Post lumpectomy changes left breast. Stable scattered punctate calcifications without suspicious cluster. No recurrent mass. Overall Assessment: Benign, BI-RAD 2 Management: Diagnostic Mammogram of both breasts in 1 year. . Results were given to the patient verbally at the time of exam. Patient should continue monthly self-breast exams. A clinical breast exam by your physician is recommended on an annual basis. This exam should not preclude additional follow-up of suspicious palpable abnormalities. Note on Anna scores and lifetime risk: 1. A Anna score greater than 3% is considered moderate risk. If this is the case, consider specialist referral to assess eligibility for a risk reducing agent. 2. If overall lifetime risk for the development of breast cancer is 20% or higher, the patient may qualify for future screening with alternating mammogram and breast MRI. [facility], , 03/24/2025 1:43 PM. Electronically signed and approved by: Juma Dasilva M.D. Radiologis
== END | disposition home or self-care (01) ==
LOC: RADMAMWWP 13:15
PROVIDERS: ATTEND Internal Medicine
DX: C50.312 Malignant neoplasm of lower-inner quadrant of left female breast (principal); R92.343 Mammographic extreme density, bilateral breasts; Z71.3 Dietary counseling and surveillance; Z78.0 Asymptomatic menopausal state; Z80.3 Family history of malignant neoplasm of breast; Z85.3 Personal history of malignant neoplasm of breast
CPT/HCPCS: 77066; G0279; 77062